=== PATIENT | male | born 1970 | race Caucasian/White ===

== ENCOUNTER 2017-06-14 15:09 | Emergency (ER) | payer MEDICAID, OTHER ==
[~2017-06-14] VITALS: Ht 195.6 cm; Wt 122.5 kg
[~2017-06-14 15:09] MED LIST: BENZ-13 PO; CARV12.52 PO; CARV3.122 PO; CODE-54 PO; CODE118S2 PO; FAMO20TA5 PO; GABA-488; GABA300C PO; GABA600T2 PO; HYDR-3454 PO; HYDR-707 PO; HYDR1TAB PO; IBP800T; IBUP-1780; IBUP-1780 PO; LEVO500T2 PO; MELO7.5T46; METH4TAB PO; NAPR500T PO; OSLT75CRX PO; PENI500T PO; PREG50CA2; RT-ALBUINH IH; SULF-222 PO; TRAM-21 PO; TRAM50TA2 PO
--- OUTSIDE RECORDS SUMMARY | 2017-06-14 15:22 | XMS REPORT ---
Author Author RAFAT PATEL Organization [employer] Address Unknown Phone Unavailable Care Team Providers Care Sandwich Wrapper Name Role Phone RAFAT PATEL CP Unavailable Allergies, Adverse Reactions, Alerts Substance Reaction Event Type N.K.D.A. 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 Active Assessment High risk medication use Z79.899 Active Medications Medication Code System Code Instructions Start Date End Date Status Dosage Coreg [facility] [address]-87 3.125 MG Orally Twice a day 1 tablet with food Ibuprofen [facility] [address]-18 800 MG Orally Three times a day Sep 01, 2015 1 tablet as needed for pain Lyrica [facility] [address]-77 50 MG Orally Three times a day Sep 01, 2015 1 capsule-share to care Iron [facility] [address] 325 (65 Fe) MG Orally 2 times a day 1 tab Tramadol HCl [facility] [address]-14 50 MG Orally 2 times a day Sep 01, 2015 1 tablet as needed Procedures Procedure Coding System Code Date Office Visit, Est Pt., Level 3 CPT-4 58465 Sep 01, 2015 Vital Signs Date/Time: Sep 01, 2015 Temperature 97.0 F Weight 252 lbs Height 77 in BMI 29.88 Index Blood Pressure Diastolic 86 mmHg Blood Pressure Systolic 132 mmHg Cardiac Monitoring Heart Rate 82 bpm Results No Known Results Summary Purpose [employer] Submission
--- OUTSIDE RECORDS SUMMARY | 2017-06-14 15:22 | XMS REPORT ---
Author Author RAFAT PATEL Organization [employer] Address Unknown Phone Unavailable Care Team Providers Care Scow Derrick Operator Name Role Phone RAFAT PATEL CP Unavailable [...] Instructions Start Date End Date Status Dosage Ibuprofen [facility] [address]-14 800 MG Orally Three times a day Sep 01, 2015 1 tablet as needed for pain Coreg [facility] [address]-99 3.125 MG Orally Twice a day 1 tablet with food Gabapentin [facility] [address]-65 600 MG Orally 2 times a day Nov 04, 2015 1 tablet Procedures Procedure Coding System Code Date Office Visit, Est Pt., Level 3 CPT-4 79683 Nov 04, 2015 Vital Signs Date/Time: Nov 04, 2015 Temperature 98.3 F Weight 271.1 lbs Height 77 in BMI 32.14 Index Blood Pressure Diastolic 88 mmHg Blood Pressure Systolic 132 mmHg Cardiac Monitoring Heart Rate 70 bpm Results No Known Results Summary Purpose [employer] Submission
--- OUTSIDE RECORDS SUMMARY | 2017-06-14 15:22 | XMS REPORT ---
Author Author JOLENE TERRY [facility] [employer] Address Unknown Phone Unavailable Care Team Providers Care Fraud Prevention Analyst Name Role Phone JOLENE TERRY Unavailable Allergies No Known Allergies Problems Problem Type Condition ICD-9 Code Onset Dates Condition Status Problem Neuropathy, lower extremity 355.8 Active Problem Chronic pain of lower extremity 729.5 Active Problem Irregular cardiac rhythm 427.9 Active Medications No Known Medications Results No Known Results Summary Purpose [employer] Submission
--- OUTSIDE RECORDS SUMMARY | 2017-06-14 15:22 | XMS REPORT | Clinical Summary ---
Author Author [facility] Organization [facility] Address Unknown Phone Unavailable Care Team Providers Care Mica Washer Gluer Name Role Phone PCP Unavailable Source Comments Some departments are not documenting in the electronic medical record. If you do not see the information that you expected, contact Release of Information in the Health Information Management department at [phone] for further assistance in locating additional records.[facility] Allergies Not on File Current Medications Not on file Active Problems Not on file Social History Tobacco Use Types Packs/Day Years Used Date Never Assessed Sex Assigned at Date Recorded Not on file Last Filed Vital Signs Not on file Plan of Treatment Health Maintenance Due Date Last Done Comments PHYSICAL (COMPREHENSIVE) 1977 EXAM PERTUSSIS VACCINE 1981 TETANUS VACCINE 1987 INFLUENZA VACCINE 06/22/2017 Results Not on filefrom Last 3 Months
--- OUTSIDE RECORDS SUMMARY | 2017-06-14 15:23 | XMS REPORT ---
Author Author RAFAT PATEL Organization [employer] Address Unknown Phone Unavailable Care Team Providers Care Infant Teacher Name Role Phone RAFAT PATEL CP Unavailable Allergies No Known Allergies Problems Problem Type Condition Code Onset Dates Condition Status Problem Neuropathy, lower extremity 355.8 Active Problem Chronic pain of lower extremity 729.5 Active Problem Irregular cardiac rhythm 427.9 Active Medications Medication Code System Code Instructions Start Date End Date Status Dosage Tramadol HCl [facility] [address]-46 50 MG Orally 2 times a day Sep 01, 2015 1 tablet as needed Results No Known Results Summary Purpose [employer] Submission
--- OUTSIDE RECORDS SUMMARY | 2017-06-14 15:23 | XMS REPORT ---
Author Author RAFAT PATEL Organization [employer] Address Unknown Phone Unavailable Care Team Providers Care Confidential Investigator Name Role Phone RAFAT PATEL CP Unavailable Allergies No Known Allergies Problems Problem Type Condition Code Onset Dates Condition Status Problem Neuropathy, lower extremity 355.8 Active Problem Chronic pain of lower extremity 729.5 Active Problem Irregular cardiac rhythm 427.9 Active Medications No Known Medications Results No Known Results Summary Purpose [employer] Submission
[2017-06-14] MEDS: LIDOCAINE 1% INJ 20 ML (XYLOCAINE) VIAL INJ ONE (17:00)
[2017-06-14] MEDS: cefTRIAXone 1 GM (ROCEPHIN) VIAL IM ONE (17:01)
--- NOTE | 2017-06-14 17:03 | ED Integumentary General ---
General Chief Complaint: Skin/Wound Problems Stated Complaint: SPIDER BITE Nursing Triage Note: Pt noticed area of concern on his penis. Onset this morning. Source: patient, family Exam Limitations: no limitations History of Present Illness Time seen by provider: 16:58 Initial Comments This is a 47-year-old white male presents with 2 raised areas to the glans of his penis that he noted this morning. The inferior abrasion just below the glans and the adjacent to the corpora had purulent drainage. Patient denies the possibility of an STD. He is concerned that he may have sustained a spider bite. Patient denies similar episodes in the past. She had no associated fever chills or adenopathy. The patient denies allergies to antibiotics. Allergies and Home Medications Allergies Coded Allergies: LISAANo Known Allergies (Unverified Allergy, Mild, 09/27/09) Home Medications Albuterol Sulfate 8.5 Gm Hfa.aer.ad, 2 PUFF IH Q4H, #1 Prescribed by: BIA ALCAZAR on 06/19/162140 Benzonatate 100 Mg Capsule, 1-2 TAB PO TID, #30 Prescribed by: BIA ALCAZAR on 06/19/162140 Carvedilol 3.125 Mg Tablet, 1 TAB PO BID, #180 (Reported) Gabapentin 600 Mg Tablet, 1 TAB PO BID, #60 (Reported) Ibuprofen 800 Mg Tablet, 800 MG PO UD PRN for PAIN, (Reported) Levofloxacin 500 Mg Tablet, 500 MG PO DAILY, #10 Prescribed by: BIA ALCAZAR on 06/19/162140 Meloxicam 7.5 Mg Tablet, #60 (Reported) Methylprednisolone 4 Mg Tab.ds.pk, 4 MG PO UD, #1 Prescribed by: BIA ALCAZAR on 06/19/162140 Tramadol HCl 50 Mg Tablet, 50 MG PO Q6H PRN for PAIN, #20 Prescribed by: SUNDEEP HASSAN on 05/22/16 0707 Constitutional: No chills, No fever EENTM: No hearing loss Respiratory: No cough Cardiovascular: No chest pain Gastrointestinal: No abdominal pain, No nausea, No vomiting Genitourinary: No discharge, No dysuria, No frequency, No other (. Drainage from the abrasion to the inferior surface of the glans.) Musculoskeletal: No back pain Skin: No change in color, other (the aforementioned abrasions to the glans of the penis) Psychiatric/Neurological: No Symptoms Reported Endocrine: No Symptoms Reported Hematologic/Lymphatic: No Symptoms Reported Past Ocpfaos-Anmbsm-Ypyfqc Hx Patient Social History Alcohol Beverage of Choice: Beer Type Used: Cigars, Cigarettes Recent Foreign Travel: No Contact w/Someone Who Travel: No Recent Infectious Disease Expo: No Recent Hopitalizations: No Immunizations Up To Date Tetanus Booster (TDap): Unknown Date of Influenza Vaccine: Sep 09, 2014 Seasonal Allergies Seasonal Allergies: No Surgeries Surgeries: Orthopedic Cardiovascular Cardiac Disorders: Hypertension, Irregular Heartbeat Reproductive System Hx Reproductive Disorders: No Musculoskeletal Musculoskeletal Disorders: Chronic Back Pain, Fractures Blood Transfusions Adverse Reaction to a Blood Tr: No Reviewed Nursing Assessment Reviewed/Agree w Nursing PMH: Yes Physical Exam Vital Signs Vital Sign - Last 12Hours 06/14/17 15:52 Temp 97.2 Pulse 70 Resp 16 B/P (MAP) 135/84 Pulse Ox 98 O2 Delivery Room Air Capillary Refill : Less Than 3 Seconds General Appearance: WD/WN, no apparent distress HEENT: normal ENT inspection Neck: normal inspection Cardiovascular: regular rate, rhythm Respiratory: chest non-tender, lungs clear Gastrointestinal: normal bowel sounds, non tender Back: normal inspection Extremities: normal range of motion Neurologic/Psychiatric: no motor/sensory deficits Skin: normal color, warm/dry, other (abrasions are noted over the glans of the penis. There is a small nondraining abrasion over the dorsum of the glans there is a small amount of purulent drainage from the abrasion to the inferior surface of the glans.) Skin Problem Location: generalized Skin Problem Character: abscess Progress/Results/Core Measures Results/Orders My Orders Orders - SAULO COKER MD Ceftriaxone Injection (Rocephin Injectio (06/14/17 16:15) Lidocaine 1% Injection (Xylocaine 1% Inj (06/14/17 16:15) Wound Culture (06/14/17 16:27) Vital Signs/I&O Vital Sign - Last 12Hours 06/14/17 15:52 Temp 97.2 Pulse 70 Resp 16 B/P (MAP) 135/84 Pulse Ox 98 O2 Delivery Room Air Blood Pressure Mean: 101 Progress Note : Time: 17:02 Progress Note The patient had a culture obtained from the abrasion to the inferior surface of the glans. He received a gram of Rocephin IM. Departure Impression Impression: Primary Impression: Skin abrasion Disposition: HOME, SELF-CARE Condition: Improved Departure-Patient Inst. Decision time for Depature: 17:03 Referrals: NO,LOCAL PHYSICIAN (PCP) Primary Care Physician Patient Instructions: Cellulitis (Skin Infection), Adult (DC) SAULO COKER MD Jun 14, 2017 17:03
[2017-06-14 17:20] VITALS: BP 132/88
== END 2017-06-14 17:20 | disposition home or self-care (01) ==
LOC: EDUNIT# 15:09 → ER 15:11
DX: S30.812A Abrasion of penis, initial encounter (principal); I10 Essential (primary) hypertension; Z87.81 Personal history of (healed) traumatic fracture; X58.XXXA Exposure to other specified factors, initial encounter
CPT/HCPCS: 87070; 87205; 96372; 99284

== ENCOUNTER 2017-08-18 15:31 | Emergency (ER) | payer MEDICARE, OTHER ==
[~2017-08-18] VITALS: Ht 195.6 cm; Wt 122.5 kg
--- OUTSIDE RECORDS SUMMARY | 2017-08-18 15:35 | XMS REPORT | Clinical Summary ---
Author Author [facility] Organization [facility] Address Unknown Phone Unavailable Care Team Providers Care Supervisor Lace Tearing Name Role Phone PCP Unavailable Source Comments Some departments are not documenting in the electronic medical record. If you do not see the information that you expected, contact Release of Information in the Health Information Management department at [phone] for further assistance in locating additional records.[facility] Allergies Not on File Current Medications Not on file Active Problems Not on file Social History Tobacco Use Types Packs/Day Years Used Date Never Assessed Sex Assigned at Date Recorded Not on file Last Filed Vital Signs Not on file Plan of Treatment Health Maintenance Due Date Last Done Comments PHYSICAL (COMPREHENSIVE) 1977 EXAM PERTUSSIS VACCINE 1981 TETANUS VACCINE 1987 INFLUENZA VACCINE 05/22/2017 Results Not on filefrom Last 3 Months
[2017-08-18] MEDS ORDERED: ORPHENADRINE 60 MG/2 ML (NORFLEX) AMP IM ONE (15:45)
--- NOTE | 2017-08-18 15:48 | ED Neck-Back Pain/Injury ---
General Chief Complaint: Head/Cervical Problems Stated Complaint: NECK/SPINE PAIN Source of Information: Patient Exam Limitations: No Limitations History of Present Illness Time Seen by Provider: 15:45 Initial Comments To ER with 2-3 days of posterior midline neck pain. This does not affect his head he has no headache. He denies fevers or chills or injury. He states he's been unable sleep for the past 2-3 days because of the pain. He states that he can keep his head bent forward without pain but when he tries to extend his neck then he gets a shooting pain down both of his arms into his biceps. He's recently had a sore throat after his had a upper respiratory illness. Symptoms are improving and he is able to swallow without pain or difficulty. No fevers.He has had these symptoms before but not this intense and they went away without treatment. Location: C-Spine, Paraspinous Muscles Timing/Duration: 2-3 Days Severity: Moderate Associated Symptoms: No fever, No numbness in legs/feet, No tingling in legs/ feet, No sensory/motor loss, No lower back pain, No loss of bladder control, No loss of bowel control Allergies and Home Medications Allergies Coded Allergies: NKANo Known Allergies (Unverified Allergy, Mild, 09/27/09) Home Medications Albuterol Sulfate 8.5 Gm Hfa.aer.ad, 2 PUFF IH Q4H, #1 Prescribed by: BIA ALCAZAR on 06/19/162140 Benzonatate 100 Mg Capsule, 1-2 TAB PO TID, #30 Prescribed by: BIA ALCAZAR on 06/19/162140 Carvedilol 3.125 Mg Tablet, 1 TAB PO BID, #180 (Reported) Gabapentin 600 Mg Tablet, 1 TAB PO BID, #60 (Reported) Ibuprofen 800 Mg Tablet, 800 MG PO UD PRN for PAIN, (Reported) Levofloxacin 500 Mg Tablet, 500 MG PO DAILY, #10 Prescribed by: BIA ALCAZAR on 06/19/162140 Meloxicam 7.5 Mg Tablet, #60 (Reported) Methylprednisolone 4 Mg Tab.ds.pk, 4 MG PO UD, #1 Prescribed by: BIA ALCAZAR on 06/19/162140 Tramadol HCl 50 Mg Tablet, 50 MG PO Q6H PRN for PAIN, #20 Prescribed by: SUNDEEP HASSAN on 05/22/16 0707 Constitutional: see HPI, No chills, No fever EENTM: see HPI Respiratory: no symptoms reported Cardiovascular: no symptoms reported Genitourinary: no symptoms reported Musculoskeletal: see HPI Skin: no symptoms reported Psychiatric/Neurological: No Symptoms Reported Past Pjbthds-Aumwkn-Ebzdym Hx Patient Social History Alcohol Use: Occasionally Uses Number of Drinks Today: AA Alcohol Beverage of Choice: Beer Recreational Drug Use: No Smoking Status: Current Someday Smoker Type Used: Cigars, Cigarettes 2nd Hand Smoke Exposure: Yes Recent Foreign Travel: No Contact w/Someone Who Travel: No Recent Hopitalizations: No Physical Abuse: No Sexual Abuse: No Immunizations Up To Date Tetanus Booster (TDap): Unknown Date of Influenza Vaccine: Sep 09, 2014 Seasonal Allergies Seasonal Allergies: No Surgeries History of Surgeries: Yes (LEFT LOWER LEG SURGERY X 4) Surgeries: Orthopedic Respiratory History of Respiratory Disorde: No Cardiovascular History of Cardiac Disorders: Yes Cardiac Disorders: Hypertension, Irregular Heartbeat Neurological History of Neurological Disord: No Reproductive System Hx Reproductive Disorders: No Gastrointestinal History of Gastrointestinal Di: No Musculoskeletal History of Musculoskeletal Dis: Yes (LEFT LOWER LEG INJURY) Musculoskeletal Disorders: Chronic Back Pain, Fractures Endocrine History of Endocrine Disorders: No Cancer History of Cancer: No Psychosocial History of Psychiatric Problem: No Suicide Risk Score: 0 Integumentary History of Skin or Integumenta: No Blood Transfusions History of Blood Disorders: No Adverse Reaction to a Blood Tr: No Physical Exam Vital Signs Vital Sign - Last 12Hours 08/18/17 15:41 Temp 98.1 Pulse 73 Resp 16 B/P (MAP) 155/99 Pulse Ox 98 O2 Delivery Room Air Capillary Refill : General Appearance: No Apparent Distress, WD/WN HEENT: PERRL/EOMI, TMs Normal, Other (there is some pharyngeal erythema that is minor without ulceration or swelling. There is no uvular deviation. He does not have a hot potato voice. He has no pain with neck kept in a flexed position but when he tries to extend the neck then he gets the pain. The pain is midline posterior.) Neck: Full Range of Motion, Normal Inspection Cardiovascular: Regular Rate, Rhythm, Normal Peripheral Pulses Respiratory: Lungs Clear, Normal Breath Sounds, No Accessory Muscle Use, No Respiratory Distress Gastrointestinal: Non Tender, Soft Extremity: Normal Capillary Refill, Normal Inspection Neurologic/Psychiatric: Alert, Oriented x3, No Motor/Sensory Deficits Skin: Normal Color, Warm/Dry Progress/Results/Core Measures Results/Orders My Orders Orders - BRODY MENDOZA APRN Ct Cervical Spine Wo (08/18/17 15:44) Orphenadrine Injection (Norflex Injectio (08/18/17 15:45) Medications Given in ED Current Medications Medications Dose Ordered Sig/Marguerite Route Start Time Stop Time Status Last Admin Dose Admin Orphenadrine Citrate 60 mg ONCE ONCE IM 08/18/17 15:45 08/18/17 15:46 DC 08/18/17 16:02 60 MG Vital Signs/I&O Vital Sign - Last 12Hours 08/18/17 15:41 Temp 98.1 Pulse 73 Resp 16 B/P (MAP) 155/99 Pulse Ox 98 O2 Delivery Room Air Diagnostic Imaging Diagonstic Imaging: CT Comments NAME: WALE ANTUNEZ [facility] REC#: [id number] PT STATUS: REG ER : 1970 PHYSICIAN: BRODY MENDOZA APRN ADMIT DATE: 08/18/17/ER Draft Date of Exam:08/18/17 CT CERVICAL SPINE WO PROCEDURE: CT cervical spine without contrast. TECHNIQUE: Multiple contiguous axial images were obtained through the cervical spine without the use of intravenous contrast. Sagittal and coronal reformations were then performed. INDICATION: Neck pain radiating down the spine. FINDINGS: There is normal height and alignment of the cervical vertebral bodies. There is mild disc space narrowing at C4-5 with no significant spondylosis. There is disc space narrowing and spondylosis at C5-6 which is causing some mild central canal, as well as some bilateral foraminal, narrowing. There are mild degenerative changes at C6-7. No fracture or other acute abnormality is seen. IMPRESSION: There are degenerative changes in the cervical spine which have shown some progression since the prior CT from 12/27/08. No acute abnormality is seen. Dictated on workstation # [id number] Dict: 08/18/17 1605 Trans: 08/18/17 1611 [facility] [id number] Interpreted by: CATIA COTTON MD Electronically signed by: Departure Impression Impression: Primary Impression: Cervical spine pain Disposition: 01 HOME, SELF-CARE Condition: Stable Departure-Patient Inst. Decision time for Depature: 15:48 Referrals: NO,LOCAL PHYSICIAN (PCP/Family) Primary Care Physician Patient Instructions: NO INSTRUCTIONS GIVEN Add. Discharge Instructions: 1. Return to ER for any concerns 2. Steroids and muscle relaxers as directed 3. Follow up with your doctor next week All discharge instructions reviewed with patient and/or family. Voiced understanding. Scripts Prednisone (Prednisone) 20 Mg Tab 40 MG PO DAILY, #8 TAB Prov: BRODY MENDOZA APRN 08/18/17 Cyclobenzaprine HCl (Cyclobenzaprine HCl) 5 Mg Tablet 5 MG PO TID, #21 TAB Prov: BRODY MENDOZA APRN 08/18/17 BRODY MENDOZA APRN Aug 18, 2017 15:48
--- NOTE | 2017-08-18 16:12 | Diagnostic Imaging Report ---
PROCEDURE: CT cervical spine without contrast. TECHNIQUE: Multiple contiguous axial images were obtained through the cervical spine without the use of intravenous contrast. Sagittal and coronal reformations were then performed. INDICATION: Neck pain radiating down the spine. FINDINGS: There is normal height and alignment of the cervical vertebral bodies. There is mild disc space narrowing at C4-5 with no significant spondylosis. There is disc space narrowing and spondylosis at C5-6 which is causing some mild central canal, as well as some bilateral foraminal, narrowing. There are mild degenerative changes at C6-7. No fracture or other acute abnormality is seen. IMPRESSION: There are degenerative changes in the cervical spine which have shown some progression since the prior CT from 12/27/08. No acute abnormality is seen. Dictated by: Dictated on workstation # [id number]
[2017-08-18] MEDS ORDERED: CYCL5TAB PO (16:15)
[2017-08-18] MEDS ORDERED: PRD20T PO (16:15)
[2017-08-18 16:25] VITALS: BP 155/99
[2017-08-18] MEDS ORDERED: morphine INJ 10 MG/ML 1ML (SYR OR VIAL) IJ ONE (16:30)
== END 2017-08-18 16:25 | disposition home or self-care (01) ==
LOC: ER 15:31
DX: M54.2 Cervicalgia (principal); I10 Essential (primary) hypertension; F17.210 Nicotine dependence, cigarettes, uncomplicated; F17.290 Nicotine dependence, other tobacco product, uncomplicated; Z87.81 Personal history of (healed) traumatic fracture
CPT/HCPCS: 72125; 99284

== ENCOUNTER 2018-01-30 14:15 | Inpatient (IN) | payer MEDICARE ==
[~2018-01-30] VITALS: Ht 195.6 cm; Wt 113.2 kg
[~2018-01-30 14:15] MED LIST changes: +CYCL5TAB PO; +NAPR-1071 PO; -NAPR500T PO; +PRD20T PO
--- NOTE | 2018-01-30 14:23 | ED Chest Pain ---
General Stated Complaint: CP,SOB Source: patient Exam Limitations: no limitations History of Present Illness Date Seen by Provider: Jan 30, 2018 Time Seen by Provider: 14:22 Initial Comments to ER with left-sided chest pain worse with deep breathing that began yesterday. He's had a cough and wheezing as well. Believes this may be a chest cold. Timing/Duration: 24 hours Severity/Quality: moderate ASA po TURNAROUND ENGINEER: No NTG SL TURNAROUND ENGINEER: No Associated Symptoms: shortness of breath Allergies and Home Medications Allergies Coded Allergies: NKANo Known Allergies (Unverified Allergy, Mild, 09/27/09) Home Medications Albuterol Sulfate 8.5 Gm Hfa.aer.ad, 2 PUFF IH Q4H Prescribed by: BIA ALCAZAR on 06/19/162140 Benzonatate 100 Mg Capsule, 1-2 TAB PO TID Prescribed by: BIA ALCAZAR on 06/19/162140 Carvedilol 3.125 Mg Tablet, 1 TAB PO BID, (Reported) Cyclobenzaprine HCl 5 Mg Tablet, 5 MG PO TID Prescribed by: BRODY MENDOZA on 08/18/171614 Gabapentin 600 Mg Tablet, 1 TAB PO BID, (Reported) Ibuprofen 800 Mg Tablet, 800 MG PO UD PRN for PAIN, (Reported) Levofloxacin 500 Mg Tablet, 500 MG PO DAILY Prescribed by: BIA ALCAZAR on 06/19/162140 Methylprednisolone 4 Mg Tab.ds.pk, 4 MG PO UD Prescribed by: BIA ALCAZAR on 06/19/162140 Prednisone 20 Mg Tab, 40 MG PO DAILY Prescribed by: BRODY MENDOZA on 08/18/171614 Tramadol HCl 50 Mg Tablet, 50 MG PO Q6H PRN for PAIN Prescribed by: SUNDEEP HASSAN on 05/22/16 0707 Patient Home Medication List Home Medication List Reviewed: Yes Review of Systems Constitutional: see HPI EENTM: No Symptoms Reported Respiratory: See HPI, Cough, Shortness of Air, Wheezing Cardiovascular: See HPI, Chest Pain Gastrointestinal: No Symptoms Reported Genitourinary: No Symptoms Reported Musculoskeletal: no symptoms reported Skin: no symptoms reported Psychiatric/Neurological: No Symptoms Reported Past Itcgjng-Hcfxqv-Olvovq Hx Patient Social History Alcohol Beverage of Choice: Beer Type Used: Cigars, Cigarettes 2nd Hand Smoke Exposure: Yes Recent Foreign Travel: No Contact w/Someone Who Travel: No Recent Hopitalizations: No Immunizations Up To Date Tetanus Booster (TDap): Unknown Date of Influenza Vaccine: Sep 09, 2014 Seasonal Allergies Seasonal Allergies: No Past Medical History Surgeries: Yes (LEFT LOWER LEG SURGERY X 4) Orthopedic Respiratory: No Cardiac: Yes Hypertension, Irregular Heartbeat Neurological: No Reproductive Disorders: No Gastrointestinal: No Musculoskeletal: Yes (LEFT LOWER LEG INJURY) Chronic Back Pain, Fractures Endocrine: No Cancer: No Psychosocial: No Integumentary: No Blood Disorders: No Adverse Reaction/Blood Tranf: No Physical Exam Vital Signs Vital Signs - First Documented 01/30/18 14:28 Temp 97.6 Pulse 77 Resp 18 B/P (MAP) 133/78 (96) Pulse Ox 95 O2 Delivery Room Air Capillary Refill : General Appearance: No Apparent Distress, WD/WN HEENT: PERRL/EOMI, TMs Normal Respiratory: No Accessory Muscle Use, No Respiratory Distress, Wheezing Cardiovascular: Regular Rate, Rhythm, Normal Peripheral Pulses Gastrointestinal: Non Tender, Soft Extremity: Normal Capillary Refill, Normal Inspection Neurologic/Psychiatric: Alert, Oriented x3 Skin: Normal Color, Warm/Dry Progress/Results/Core Measures Lab Results Laboratory Tests Test 01/30/18 14:33 01/30/18 14:56 01/30/18 15:10 Range/Units White Blood Count 7.0 4.3-11.0 10^3/uL Red Blood Count 4.83 4.35-5.85 10^6/uL Hemoglobin 15.6 13.3-17.7 G/DL Hematocrit 45 40-54 % Mean Corpuscular Volume 94 80-99 FL Mean Corpuscular Hemoglobin 32 25-34 PG Mean Corpuscular Hemoglobin Concent 34 32-36 G/DL Red Cell Distribution Width 13.3 10.0-14.5 % Platelet Count 183 130-400 10^3/uL Mean Platelet Volume 10.1 7.4-10.4 FL Neutrophils (%) (Auto) 52 42-75 % Lymphocytes (%) (Auto) 38 12-44 % Monocytes (%) (Auto) 6 0-12 % Eosinophils (%) (Auto) 3 0-10 % Basophils (%) (Auto) 0 0-10 % Neutrophils # (Auto) 3.7 1.8-7.8 X 10^3 Lymphocytes # (Auto) 2.6 1.0-4.0 X 10^3 Monocytes # (Auto) 0.5 0.0-1.0 X 10^3 Eosinophils # (Auto) 0.2 0.0-0.3 10^3/uL Basophils # (Auto) 0.0 0.0-0.1 10^3/uL Prothrombin Time 12.8 12.2-14.7 SEC INR Comment 1.0 0.8-1.4 Activated Partial Thromboplast Time 30 24-35 SEC D-Dimer 0.94 H 0.00-0.49 UG/ML Sodium Level 140 135-145 MMOL/L Potassium Level 4.2 3.6-5.0 MMOL/L Chloride Level 104 98-107 MMOL/L Carbon Dioxide Level 24 21-32 MMOL/L Anion Gap 12 5-14 MMOL/L Blood Urea Nitrogen 13 7-18 MG/DL Creatinine 0.95 0.60-1.30 MG/DL Estimat Glomerular Filtration Rate > 60 BUN/Creatinine Ratio 14 Glucose Level 175 H 70-105 MG/DL Calcium Level 9.1 8.5-10.1 MG/DL Magnesium Level 2.2 1.8-2.4 MG/DL Total Bilirubin 0.4 0.1-1.0 MG/DL Aspartate Amino Transf (AST/SGOT) 29 5-34 U/L Alanine Aminotransferase (ALT/SGPT) 41 0-55 U/L Alkaline Phosphatase 94 40-136 U/L Myoglobin 52.9 10.0-92.0 NG/ML Troponin I < 0.30 <0.30 NG/ML B-Type Natriuretic Peptide 236.7 H <100.0 PG/ML Total Protein 6.8 6.4-8.2 GM/DL Albumin 4.1 3.2-4.5 GM/DL Group A Streptococcus Screen NEGATIVE NEGATIVE Urine Opiates Screen NEGATIVE NEGATIVE Urine Oxycodone Screen POSITIVE H NEGATIVE Urine Methadone Screen NEGATIVE NEGATIVE Urine Propoxyphene Screen NEGATIVE NEGATIVE Urine Barbiturates Screen NEGATIVE NEGATIVE Ur Tricyclic Antidepressants Screen NEGATIVE NEGATIVE Urine Phencyclidine Screen NEGATIVE NEGATIVE Urine Amphetamines Screen NEGATIVE NEGATIVE Urine Methamphetamines Screen POSITIVE H NEGATIVE Urine Benzodiazepines Screen POSITIVE H NEGATIVE Urine Cocaine Screen NEGATIVE NEGATIVE Urine Cannabinoids Screen NEGATIVE NEGATIVE Micro Results Microbiology 01/30/18 Influenza Types A,B Antigen (CLEMENCIA) - Final, Complete My Orders Orders - BRODY MENDOZA FLOW MATCH SOFA CUTTER Cbc With Automated Diff (01/30/18 14:19) Magnesium (01/30/18 14:19) Chest 1 View, Ap/Pa Only (01/30/18 14:19) Ekg Tracing (01/30/18 14:19) Cardiac Profile 1 (01/30/18 14:19) Comprehensive Metabolic Panel (01/30/18 14:19) Myoglobin Serum (01/30/18 14:19) Protime With Inr (01/30/18 14:19) Partial Thromboplastin Time (01/30/18 14:19) O2 (01/30/18 14:19) Monitor-Rhythm Ecg Trace Only (01/30/18 14:19) Lipid Panel (01/31/18 06:00) Aspirin Chewable Tablet (Baby Aspirin Ch (01/30/18 14:30) Saline Lock/Iv-Start (01/30/18 14:19) BNP (01/30/18 14:19) Fibrin Degradation Products (01/30/18 14:19) Drug Screen Stat (Urine) (01/30/18 14:19) Albuterol/Ipra Inhalation Soln (Duoneb I (01/30/18 14:30) Ketorolac Injection (Toradol Injection) (01/30/18 14:30) Svn Sm Volume Nebulizer Rt-Rfs (01/30/18 14:21) Methylprednisolone Sod Succ (Solu-Medrol (01/30/18 14:30) Rapid Strep A Screen (01/30/18 14:38) Influenza A And B Antigens (01/30/18 14:38) Ct Angio Chest W (01/30/18 15:00) Iohexol Injection (Omnipaque 350 Mg/Ml 1 (01/30/18 15:15) Ns (Ivpb) (Sodium Chloride 0.9%) (01/30/18 15:15) Medications Given in ED Current Medications Medications Dose Ordered Sig/Marguerite Route Start Time Stop Time Status Last Admin Dose Admin Albuterol/ Ipratropium 3 ml ONCE ONCE INH 01/30/18 14:30 01/30/18 14:31 DC 01/30/18 14:51 3 ML Iohexol 125 ml ONCE ONCE IV 01/30/18 15:15 01/30/18 15:16 DC 01/30/18 15:20 125 ML Ketorolac Tromethamine 30 mg ONCE ONCE IVP 01/30/18 14:30 01/30/18 14:31 DC 01/30/18 14:44 30 MG Methylprednisolone Sodium Succinate 125 mg ONCE ONCE IVP 01/30/18 14:30 01/30/18 14:31 DC 01/30/18 14:46 125 MG Sodium Chloride 250 ml ONCE ONCE IV 01/30/18 15:15 01/30/18 15:16 DC 01/30/18 15:20 80 ML Vital Signs/I&O 01/30/18 01/30/18 01/30/18 14:28 14:32 14:52 Temp 97.6 Pulse 77 Resp 18 B/P (MAP) 133/78 (96) Pulse Ox 95 93 O2 Delivery Room Air Room Air Room Air Diagonstic Imaging: Xray Comments NAME: WALE ANTUNEZ [facility] REC#: [id number] PT STATUS: REG ER : 1970 PHYSICIAN: BRODY MENDOZA APRN ADMIT DATE: 01/30/18/ER Signed Date of Exam:01/30/18 CHEST 1 VIEW, AP/PA ONLY CHEST 1 VIEW, AP/PA ONLY Indication: Chest pain Comparison: 06/19/2016. Findings: No focal airspace disease in the visualized lungs. Please note that the posterior lower lobes are poorly evaluated by portable radiography. No pleural effusion or pneumothorax. Normal cardiomediastinal silhouette. Impression: No acute cardiopulmonary process by portable radiography. Dictated by: Dictated on workstation # [id number] Dict: 01/30/18 1449 Trans: 01/30/18 1449 [facility] [id number] Interpreted by: YONI CLIFFORD MD Electronically signed by: YONI CLIFFORD MD 01/30/18 1449 Departure Communication (Admissions) Time/Spoke to Admitting Phy: 16:18 Dr Ryan agrees to admit. Time/Spoke to Consulting Phy: 16:17 Dr Anaya recommends admission to PCP with consult to him. 1618-Pt is in trigenimy/bigeminy. I did discuss the urinalysis positive for methamphetamine with the patient. He denies this adamantly states that this must be a lab error. He would like to provide another urine sample. He goes to the bathroom for about 5 minutes and states that he cannot provide one now but would like to provide one later to recheck. Impression Primary Impression: Chest pain Additional Impression: Reactive airway disease Disposition: HOME, SELF-CARE Condition: Stable Admissions Decision to Admit Reason: Admit from ER (General) Decision to Admit/Date: Jan 30, 2018 Time/Decision to Admit Time: 16:19 Departure-Patient Inst. Referrals: BRADLY RYAN MD (PCP/Family) Primary Care Physician Copy Copies To 1: BRADLY RYAN MD, PETER J FLOW MATCH SOFA CUTTER Jan 30, 2018 14:23
[2018-01-30] MEDS ORDERED: KETOROLAC 30 MG/ML VIAL IVP ONE (14:30)
[2018-01-30] MEDS ORDERED: ASPIRIN 81 MG CHEW (CHILDREN'S ASA) PO ONE (14:30)
[2018-01-30] MEDS ORDERED: methylPREDNISolone 125 MG (Solu-MEDROL) VIAL IVP ONE (14:30)
[2018-01-30] MEDS ORDERED: RT-ALBUTEROL/IPRATROPIUM 3 ML (DUONEB) VIAL INH ONE (14:30)
[2018-01-30 14:42] LABS: BASOPHILS % (AUTO) 0 % (0-10); EOSINOPHILS # (AUTO) 0.2 10^3/uL (0.0-0.3); EOSINOPHILS % (AUTO) 3 % (0-10); HEMATOCRIT 45 % (40-54); HEMOGLOBIN 15.6 G/DL (13.3-17.7); LYMPHOCYTES # (AUTO) 2.6 X 10^3 (1.0-4.0); LYMPHOCYTES % (AUTO) 38 % (12-44); MEAN CORPUSCULAR HEMOGLOBIN 32 PG (25-34); MEAN CORPUSCULAR HGB CONC 34 G/DL (32-36); MEAN CORPUSCULAR VOLUME 94 FL (80-99); MEAN PLATELET VOLUME 10.1 FL (7.4-10.4); MONOCYTES # (AUTO) 0.5 X 10^3 (0.0-1.0); MONOCYTES % (AUTO) 6 % (0-12); NEUTROPHILS # (AUTO) 3.7 X 10^3 (1.8-7.8); NEUTROPHILS % (AUTO) 52 % (42-75); PLATELET COUNT 183 10^3/uL (130-400); RED BLOOD COUNT 4.83 10^6/uL (4.35-5.85); RED CELL DISTRIBUTION WIDTH 13.3 % (10.0-14.5)
--- NOTE | 2018-01-30 14:52 | Diagnostic Imaging Report ---
CHEST 1 VIEW, AP/PA ONLY Indication: Chest pain Comparison: 06/19/2016. Findings: No focal airspace disease in the visualized lungs. Please note that the posterior lower lobes are poorly evaluated by portable radiography. No pleural effusion or pneumothorax. Normal cardiomediastinal silhouette. Impression: No acute cardiopulmonary process by portable radiography. Dictated by: Dictated on workstation # [id number]
[2018-01-30 14:53] LABS: PROTHROMBIN TIME PATIENT 12.8 SEC (12.2-14.7)
[2018-01-30 15:03] LABS: ALANINE AMINOTRANSFERASE 41 U/L (0-55); ALBUMIN 4.1 GM/DL (3.2-4.5); ALKALINE PHOSPHATASE 94 U/L (40-136); BILIRUBIN,TOTAL 0.4 MG/DL (0.1-1.0); BUN/CREATININE RATIO 14; CALCIUM 9.1 MG/DL (8.5-10.1); CARBON DIOXIDE 24 MMOL/L (21-32); CHLORIDE 104 MMOL/L (98-107); CREATININE SERUM 0.95 MG/DL (0.60-1.30); GFR ESTIMATED > 60; GLUCOSE 175 MG/DL (70-105); MAGNESIUM 2.2 MG/DL (1.8-2.4); POTASSIUM 4.2 MMOL/L (3.6-5.0); SODIUM 140 MMOL/L (135-145); TOTAL PROTEIN 6.8 GM/DL (6.4-8.2)
[2018-01-30 15:12] LABS: MYOGLOBIN SERUM 52.9 NG/ML (10.0-92.0)
[2018-01-30] MEDS ORDERED: IOHEXOL 350 MG/ML 150 ML (OMNIPAQUE 350) VIAL IV ONE (15:15)
[2018-01-30] MEDS ORDERED: NS 250 ML (IVPB) BAG IV ONE (15:15)
[2018-01-30 15:33] LABS: BENZODIAZEPINES SCREEN URINE POSITIVE (NEGATIVE); METHAMPHETAMINE SCREEN URINE S POSITIVE (NEGATIVE)
[2018-01-30 15:34] LABS: AMPHETAMINE SCREEN, URINE NEGATIVE (NEGATIVE); BARBITURATE SCREEN URINE NEGATIVE (NEGATIVE); CANNABINOID SCREEN, URINE NEGATIVE (NEGATIVE); COCAINE SCREEN URINE NEGATIVE (NEGATIVE); METHADONE STAT NEGATIVE (NEGATIVE); OPIATE SCREEN URINE NEGATIVE (NEGATIVE); OXYCODONE STAT POSITIVE (NEGATIVE); PROPOXYPHENE STAT NEGATIVE (NEGATIVE); TRICYCLIC ANTIDEPRESSANTS SCRE NEGATIVE (NEGATIVE)
--- NOTE | 2018-01-30 15:58 | Diagnostic Imaging Report ---
PROCEDURE: CT angiography of the chest with contrast. TECHNIQUE: Multiple contiguous axial images were obtained through the chest after uneventful bolus administration of intravenous contrast. Reconstructed CTA MIP acquisitions were also performed. INDICATION: Chest pain. Shortness of air. Cough. COMPARISON: None. FINDINGS: There is no evidence of acute pulmonary embolus to the first subsegmental division of the pulmonary arteries. Heart size is within normal limits. There is no large pericardial effusion. Multiple slightly prominent mediastinal and bilateral hilar lymph nodes are identified. Largest right hilar lymph node measures 1.6 x 1.4 cm (image 60, series 2). Largest left hilar lymph node measures 1.7 x 1.3 cm. Largest mediastinal lymph node measures 1.5 x 1.2 cm. Evaluation of the lung murray demonstrates no focal consolidation, pleural effusion, nor pneumothorax. There is a subtle nodular area of groundglass density within the left suprahilar region that measures approximately 1.7 cm in diameter. Otherwise, no suspicious pulmonary nodules or masses are identified. Bony structures show no acute abnormalities. No lytic or blastic bony lesions are identified. Included portions of the upper abdomen show a hypodense appearance to the hepatic parenchyma. IMPRESSION: 1. No CT evidence of acute pulmonary embolus to the first subsegmental division of the pulmonary arteries. 2. Mildly prominent bilateral hilar and mediastinal adenopathy. Etiology and clinical significance is indeterminate based on this exam alone. Both lymphoproliferative and lympho- invasive processes such as sarcoid or metastatic disease should be considered. 3. Ill-defined subtle groundglass density within the left superhilar region. Please see below for followup recommendations. 4. Hepatic steatosis. PULMONARY NODULE FOLLOW-UP Subsolid Nodules: <6 mm: * Ground glass - no routine follow up. (In certain suspicious nodules <6 mm, consider follow-up at 2 and 4 years. If solid component(s) or growth develops, consider resection.) * Part solid - no routine follow up. (In practice, part-solid nodules cannot be defined as such until 6mm or greater, and nodules <6 mm do not usually require follow-up. Persistent part-solid nodules with solid components 6mm or greater should be considered highly suspicious) * Multiple - Consider at 3-6 months. If stable, consider CT at 2 and 4 years. (Multiple <6mm pure ground-glass nodules are usually benign, but consider follow-up in selected patients at high risk at 2 and 4 years.) 6 mm or greater: * Ground glass - CT at 6-12 months to confirm persistence, then CT every 2 years until 5 years * Part solid - CT at 3-6 months to confirm persistence. If unchanged and solid component remains <6 mm, annual CT should be performed for 5 years * Multiple - CT at 3-6 months. Subsequent management based on the most suspicious nodule(s). Dictated by: Dictated on workstation # [id number]
--- NOTE | 2018-01-30 16:52 | Consultation-Cardiology ---
HPI-Cardiology Cardiology Consultation: Date of Consultation 01/30/18 Time Seen by Provider: 16:10 Date of Admission 01-30-18 Attending Physician Suni Ryan MD Admitting Physician Suni Ryan MD Consulting Physician Chester Anaya MD HPI: Chief Complaint: PVC' Chest pain Mr. Juarez is a 47 year old male being admitted from the ED. He reports he has had increasing SOB over the course of the last year, but feels over the last few weeks it has been significantly worse. He reports chronic morning cough of thick, dark sputum. He reports yesterday he began to have sharp mid-sternal chest pain which radiated to the left side. He reports it was constant. No aggravating or alleviating symptoms. He reports around 11:00 this morning he feels the pain resolved gradually. He describes the SOB as a feeling that he can't get any air in. He reports he feels he is gasping for air at times. He reports waking up from sleep gasping at night. He reports episodes of a skipped heartbeat, which is more so at night. He states he has a home monitor and it reports his HR varies from the 40's to the 90's. He denies any syncope or near syncope. No c/o n/v/d. No c/o fever or chills. Review of Systems-Cardiology Review of Systems Constitutional: No chills, No fever Eyes: No blurred vision, No vision change Ears/Nose/Throat: No epistaxis Respiratory: As described under HPI Cardiovascular: As described under HPI Gastrointestinal: No constipation, No diarrhea, No nausea, No vomiting Genitourinary: No dysuria, No hematuria Musculoskeletal: other (chronic left leg and knee pain) Skin: No rash, No ulcerations Psychiatric/Neurological: anxiety, depression; No focal weakness, No syncope Hematologic: No bleeding abnormalities NCR-Klohna-Psggoh Hx Patient Social History Alcohol Use: Denies Use Recreational Drug Use: No Type Used: Cigars, Cigarettes 2nd Hand Smoke Exposure: Yes Recent Foreign Travel: No Recent Infectious Disease Expo: No Immunizations Up To Date Tetanus Booster (TDap): Unknown Date of Influenza Vaccine: Sep 09, 2014 Past Medical History PMH As described under Assessment. Family Medical History Family Medical History: He report his father has CAD which was first diagnosed in his late 60's. Allergies and Home Medications Allergies Coded Allergies: Sanna Known Allergies (Unverified Allergy, Mild, 09/27/09) Home Medications Carvedilol 3.125 Mg Tablet, 1 TAB PO BID, (Reported) Diazepam 5 Mg Tablet, 5 MG PO BID PRN for ANXIETY/LEG SPASMS, (Reported) Gabapentin 600 Mg Tablet, 1 TAB PO BID, (Reported) Oxycodone HCl/Acetaminophen 1 Each Tablet, 1 TAB PO TID PRN for PAIN-MODERATE, ( Reported) [Stephanie] , PO UD, (Reported) Physical Exam-Cardiology Physical Exam Vital Signs/I&O 01/31/18 01/31/18 01/31/18 01/31/18 00:00 01:00 04:00 09:06 Temp 99.4 97.7 Pulse 80 77 52 Resp 20 18 B/P (MAP) 140/80 (100) 148/70 (96) Pulse Ox 90 92 96 O2 Delivery Room Air Room Air Room Air 01/31/18 00:00 Intake Total 350 ml Balance 350 ml Capillary Refill : Less Than 3 Seconds Constitutional: AAO x 3, well-developed, well-nourished HEENT: PERRL, hearing is well preserved, oral hygience is good Neck: No carotid bruit; carotid pulses are 2 + bilaterally Respiratory: No accessory muscle use, No respiratory distress; chest expansion is symmetric, chest is bilaterally symmetric, crackles (bilat lower lobes), rhonchi (scattered) Cardiovascular: regular rate-rhythm; No JVD; S1 and S2 Gastrointestinal: soft, round, audible bowel sounds Rectal: deferred Extremities: no lower extremity edema bilateral Neurologic/Psychiatric: grossly intact, power is 5/5 both on sides Skin: No rash, No ulcerations Data Review Labs Laboratory Tests 01/30/18 14:33: White Blood Count 7.0, Red Blood Count 4.83, Hemoglobin 15.6, Hematocrit 45, Mean Corpuscular Volume 94, Mean Corpuscular Hemoglobin 32, Mean Corpuscular Hemoglobin Concent 34, Red Cell Distribution Width 13.3, Platelet Count 183, Mean Platelet Volume 10.1, Neutrophils (%) (Auto) 52, Lymphocytes (%) (Auto) 38 , Monocytes (%) (Auto) 6, Eosinophils (%) (Auto) 3, Basophils (%) (Auto) 0, Neutrophils # (Auto) 3.7, Lymphocytes # (Auto) 2.6, Monocytes # (Auto) 0.5, Eosinophils # (Auto) 0.2, Basophils # (Auto) 0.0, Prothrombin Time 12.8, INR Comment 1.0, Activated Partial Thromboplast Time 30, D-Dimer 0.94H, Sodium Level 140, Potassium Level 4.2, Chloride Level 104, Carbon Dioxide Level 24, Anion Gap 12, Blood Urea Nitrogen 13, Creatinine 0.95, Estimat Glomerular Filtration Rate > 60, BUN/Creatinine Ratio 14, Glucose Level 175H, Calcium Level 9.1, Magnesium Level 2.2, Total Bilirubin 0.4, Aspartate Amino Transf (AST /SGOT) 29, Alanine Aminotransferase (ALT/SGPT) 41, Alkaline Phosphatase 94, Myoglobin 52.9, Troponin I < 0.30, B-Type Natriuretic Peptide 236.7H, Total Protein 6.8, Albumin 4.1 01/30/18 14:56: Group A Streptococcus Screen NEGATIVE 01/30/18 15:10: Urine Opiates Screen NEGATIVE, Urine Oxycodone Screen POSITIVEH, Urine Methadone Screen NEGATIVE, Urine Propoxyphene Screen NEGATIVE, Urine Barbiturates Screen NEGATIVE, Ur Tricyclic Antidepressants Screen NEGATIVE, Urine Phencyclidine Screen NEGATIVE, Urine Amphetamines Screen NEGATIVE, Urine Methamphetamines Screen POSITIVEH, Urine Benzodiazepines Screen POSITIVEH, Urine Cocaine Screen NEGATIVE, Urine Cannabinoids Screen NEGATIVE 01/30/18 20:57: Urine Opiates Screen NEGATIVE, Urine Oxycodone Screen POSITIVEH, Urine Methadone Screen NEGATIVE, Urine Propoxyphene Screen NEGATIVE, Urine Barbiturates Screen NEGATIVE, Ur Tricyclic Antidepressants Screen NEGATIVE, Urine Phencyclidine Screen NEGATIVE, Urine Amphetamines Screen NEGATIVE, Urine Methamphetamines Screen POSITIVEH, Urine Benzodiazepines Screen POSITIVEH, Urine Cocaine Screen NEGATIVE, Urine Cannabinoids Screen POSITIVEH 01/31/18 05:22: White Blood Count 11.8H, Red Blood Count 4.75, Hemoglobin 15.2, Hematocrit 44, Mean Corpuscular Volume 93, Mean Corpuscular Hemoglobin 32, Mean Corpuscular Hemoglobin Concent 35, Red Cell Distribution Width 13.2, Platelet Count 192, Mean Platelet Volume 10.0, Neutrophils (%) (Auto) 89H, Lymphocytes (%) (Auto) 10L, Monocytes (%) (Auto) 1, Eosinophils (%) (Auto) 0, Basophils (%) (Auto) 0, Neutrophils # (Auto) 10.5H, Lymphocytes # (Auto) 1.2, Monocytes # (Auto) 0.1, Eosinophils # (Auto) 0.0, Basophils # (Auto) 0.0, Magnesium Level 2.1, Troponin I < 0.30, Triglycerides Level 123, Cholesterol Level 177, LDL Cholesterol Direct 92, VLDL Cholesterol 25, HDL Cholesterol 36L, Thyroid Stimulating Hormone (TSH) 0.39 Microbiology 01/30/18 Influenza Types A,B Antigen (CLEMENCIA) - Final, Complete Radiology NAME: WALE JUAREZ [facility] REC#: [id number] PT STATUS: REG ER : 1970 PHYSICIAN: BRODY MENDOZA APRN ADMIT DATE: 01/30/18/ER Signed Date of Exam: 01/30/18 CHEST 1 VIEW, AP/PA ONLY CHEST 1 VIEW, AP/PA ONLY Indication: Chest pain Comparison: 06/19/2016. Findings: No focal airspace disease in the visualized lungs. Please note that the posterior lower lobes are poorly evaluated by portable radiography. No pleural effusion or pneumothorax. Normal cardiomediastinal silhouette. Impression: No acute cardiopulmonary process by portable radiography. Dictated by: Dictated on workstation # [id number] Dict: 01/30/181448 Trans: 01/30/181448 Interpreted by: YONI CLIFFORD MD Electronically signed by: YONI CLIFFORD MD 01/30/181448 NAME: WALE JUAREZ [facility] REC#: [id number] PT STATUS: REG ER : 1970 PHYSICIAN: BRODY MENDOZA APRN ADMIT DATE: 01/30/18/ER Draft Date of Exam:01/30/18 CT ANGIO CHEST W PROCEDURE: CT angiography of the chest with contrast. TECHNIQUE: Multiple contiguous axial images were obtained through the chest after uneventful bolus administration of intravenous contrast. Reconstructed CTA MIP acquisitions were also performed. INDICATION: Chest pain. Shortness of air. Cough. COMPARISON: None. FINDINGS: There is no evidence of acute pulmonary embolus to the first subsegmental division of the pulmonary arteries. Heart size is within normal limits. There is no large pericardial effusion. Multiple slightly prominent mediastinal and bilateral hilar lymph nodes are identified. Largest right hilar lymph node measures 1.6 x 1.4 cm (image 60, series 2). Largest left hilar lymph node measures 1.7 x 1.3 cm. Largest mediastinal lymph node measures 1.5 x 1.2 cm. Evaluation of the lung murray demonstrates no focal consolidation, pleural effusion, nor pneumothorax. There is a subtle nodular area of groundglass density within the left suprahilar region that measures approximately 1.7 cm in diameter. Otherwise, no suspicious pulmonary nodules or masses are identified. Bony structures show no acute abnormalities. No lytic or blastic bony lesions are identified. Included portions of the upper abdomen show a hypodense appearance to the hepatic parenchyma. IMPRESSION: 1. No CT evidence of acute pulmonary embolus to the first subsegmental division of the pulmonary arteries. 2. Mildly prominent bilateral hilar and mediastinal adenopathy. Etiology and clinical significance is indeterminate based on this exam alone. Both lymphoproliferative and lympho- invasive processes such as sarcoid or metastatic disease should be considered. 3. Ill-defined subtle groundglass density within the left superhilar region. Please see below for followup recommendations. 4. Hepatic steatosis. PULMONARY NODULE FOLLOW-UP Subsolid Nodules: <6 mm: * Ground glass - no routine follow up. (In certain suspicious nodules <6 mm, consider follow-up at 2 and 4 years. If solid component(s) or growth develops, consider resection.) * Part solid - no routine follow up. (In practice, part-solid nodules cannot be defined as such until 6mm or greater, and nodules <6 mm do not usually require follow-up. Persistent part-solid nodules with solid components 6mm or greater should be considered highly suspicious) * Multiple - Consider at 3-6 months. If stable, consider CT at 2 and 4 years. (Multiple <6mm pure ground-glass nodules are usually benign, but consider follow-up in selected patients at high risk at 2 and 4 years.) 6 mm or greater: ECG Impression ECG Comment SR with trig PVC's A/P-Cardiology Assessment/Admission Diagnosis Chest pain likely r/t acute asthmatic bronchitis Freq PVC's likely r/t acute asthmatic bronchitis and methamphetamine use H/O extensive left leg surgery d/t a fall from a horse in 2015 (reports 5 surgeries) Prob COPD HTN Pulmonary nodules per CT of the chest on 01-30-18. Mildly prominent bilateral hilar and mediastinal adenopathy. Etiology and clinical significance is indeterminate based on this exam alone. Both lymphoproliferative and lympho- invasive processes such as sarcoid or metastatic disease should be considered. Tobaccoism - cessation advised Symptoms suggestive of sleep apnea - advise further w/u as an outpt Positive drug screen for methamphetamines on 01-30-18 Clinical Quality Measures AMI/AHF: ASA po Prior to arrival: TRELL Jonhson Jan 30, 2018 16:52
[2018-01-30] MEDS ORDERED: AMOXICILLIN 500 MG (POLYMOX) CAP PO SCH (17:30)
--- NOTE | 2018-01-30 17:41 | Consultation-Cardiology ---
HPI-Cardiology Cardiology Consultation: Date of Consultation 01/30/18 Time Seen by Provider: 17:10 Date of Admission Attending Physician Suni Ryan MD Admitting Physician Suni Ryan MD Consulting Physician BELINDA PETTY MD, MA, FACP, FACC, FSCAI, CCDS HPI: Chief Complaint: PVCs Chest pain Mr. Juarez is a 47 year old male being admitted from the ED. He reports he has had increasing SOB over the course of the last year, but feels over the last few weeks it has been significantly worse. He reports chronic morning cough of thick, dark sputum. He reports yesterday he began to have sharp mid-sternal chest pain which radiated to the left side. He reports it was constant. No aggravating or alleviating symptoms. He reports around 11:00 this morning he feels the pain resolved gradually. He describes the SOB as a feeling that he can't get any air in. He reports he feels he is gasping for air at times. He reports waking up from sleep gasping at night. He reports episodes of a skipped heartbeat, which is more so at night. He states he has a home monitor and it reports his HR varies from the 40's to the 90's. He denies any syncope or near syncope. No c/o n/v/d. No c/o fever or chills. Review of Systems-Cardiology Review of Systems Constitutional: No chills, No fever, No weight loss, No weight gain Eyes: No blurred vision, No vision change Ears/Nose/Throat: No epistaxis Respiratory: As described under HPI Cardiovascular: As described under HPI Gastrointestinal: No constipation, No diarrhea, No nausea, No vomiting Genitourinary: No dysuria, No hematuria Musculoskeletal: other (chronic left leg and knee pain) Skin: No rash, No ulcerations Psychiatric/Neurological: anxiety, depression; No focal weakness, No syncope Hematologic: No bleeding abnormalities YQL-Khohna-Xrqven Hx Patient Social History Alcohol Use: Denies Use Recreational Drug Use: No Type Used: Cigars, Cigarettes 2nd Hand Smoke Exposure: Yes Recent Foreign Travel: No Recent Infectious Disease Expo: No Hospitalization with Isolation: Denies Physical Abuse Screen: No Sexual Abuse: No Immunizations Up To Date Tetanus Booster (TDap): Unknown Date of Influenza Vaccine: Sep 09, 2014 Past Medical History PMH As described under Assessment. Family Medical History Family Medical History: He report his father has CAD which was first diagnosed in his late 60's. Allergies and Home Medications Allergies Coded Allergies: Sanna Known Allergies (Unverified Allergy, Mild, 09/27/09) Home Medications Albuterol Sulfate 8.5 Gm Hfa.aer.ad, 2 PUFF IH Q4H Prescribed by: BIA ALCAZAR on 06/19/162140 Benzonatate 100 Mg Capsule, 1-2 TAB PO TID Prescribed by: BIA ALCAZAR on 06/19/162140 Carvedilol 3.125 Mg Tablet, 1 TAB PO BID, (Reported) Cyclobenzaprine HCl 5 Mg Tablet, 5 MG PO TID Prescribed by: BRODY MENDOZA on 08/18/171614 Gabapentin 600 Mg Tablet, 1 TAB PO BID, (Reported) Ibuprofen 800 Mg Tablet, 800 MG PO UD PRN for PAIN, (Reported) Levofloxacin 500 Mg Tablet, 500 MG PO DAILY Prescribed by: BIA ALCAZAR on 06/19/162140 Methylprednisolone 4 Mg Tab.ds.pk, 4 MG PO UD Prescribed by: BIA ALCAZAR on 06/19/162140 Prednisone 20 Mg Tab, 40 MG PO DAILY Prescribed by: BRODY MENDOZA on 08/18/171614 Tramadol HCl 50 Mg Tablet, 50 MG PO Q6H PRN for PAIN Prescribed by: SUNDEEP HASSAN on 05/22/16 0707 Patient Home Medication List Home Medication List Reviewed: Yes Physical Exam-Cardiology Physical Exam Vital Signs/I&O 01/30/18 01/30/18 01/30/18 14:28 14:32 14:52 Temp 97.6 Pulse 77 Resp 18 B/P (MAP) 133/78 (96) Pulse Ox 95 93 O2 Delivery Room Air Room Air Room Air Capillary Refill : Less Than 3 Seconds Constitutional: AAO x 3, well-developed, well-nourished HEENT: PERRL, hearing is well preserved, oral hygience is good Neck: No carotid bruit; carotid pulses are 2 + bilaterally Respiratory: No accessory muscle use, No respiratory distress; chest expansion is symmetric, chest is bilaterally symmetric, crackles (bilat lower lobes), rhonchi (scattered) Cardiovascular: regular rate-rhythm; No JVD; S1 and S2 Gastrointestinal: soft, round, audible bowel sounds Rectal: deferred Extremities: no lower extremity edema bilateral Neurologic/Psychiatric: grossly intact, power is 5/5 both on sides Skin: No rash, No ulcerations Data Review Labs Laboratory Tests 01/30/18 14:33: White Blood Count 7.0, Red Blood Count 4.83, Hemoglobin 15.6, Hematocrit 45, Mean Corpuscular Volume 94, Mean Corpuscular Hemoglobin 32, Mean Corpuscular Hemoglobin Concent 34, Red Cell Distribution Width 13.3, Platelet Count 183, Mean Platelet Volume 10.1, Neutrophils (%) (Auto) 52, Lymphocytes (%) (Auto) 38 , Monocytes (%) (Auto) 6, Eosinophils (%) (Auto) 3, Basophils (%) (Auto) 0, Neutrophils # (Auto) 3.7, Lymphocytes # (Auto) 2.6, Monocytes # (Auto) 0.5, Eosinophils # (Auto) 0.2, Basophils # (Auto) 0.0, Prothrombin Time 12.8, INR Comment 1.0, Activated Partial Thromboplast Time 30, D-Dimer 0.94H, Sodium Level 140, Potassium Level 4.2, Chloride Level 104, Carbon Dioxide Level 24, Anion Gap 12, Blood Urea Nitrogen 13, Creatinine 0.95, Estimat Glomerular Filtration Rate > 60, BUN/Creatinine Ratio 14, Glucose Level 175H, Calcium Level 9.1, Magnesium Level 2.2, Total Bilirubin 0.4, Aspartate Amino Transf (AST /SGOT) 29, Alanine Aminotransferase (ALT/SGPT) 41, Alkaline Phosphatase 94, Myoglobin 52.9, Troponin I < 0.30, B-Type Natriuretic Peptide 236.7H, Total Protein 6.8, Albumin 4.1 01/30/18 14:56: Group A Streptococcus Screen NEGATIVE 01/30/18 15:10: Urine Opiates Screen NEGATIVE, Urine Oxycodone Screen POSITIVEH, Urine Methadone Screen NEGATIVE, Urine Propoxyphene Screen NEGATIVE, Urine Barbiturates Screen NEGATIVE, Ur Tricyclic Antidepressants Screen NEGATIVE, Urine Phencyclidine Screen NEGATIVE, Urine Amphetamines Screen NEGATIVE, Urine Methamphetamines Screen POSITIVEH, Urine Benzodiazepines Screen POSITIVEH, Urine Cocaine Screen NEGATIVE, Urine Cannabinoids Screen NEGATIVE Microbiology 01/30/18 Influenza Types A,B Antigen (CLEMENCIA) - Final, Complete Laboratory Tests 01/30/18 14:33 A/P-Cardiology Assessment/Admission Diagnosis Chest pain likely r/t acute asthmatic bronchitis Freq PVC's likely r/t acute asthmatic bronchitis and methamphetamine use ( tested positive, but he feels it is false positive) H/O extensive left leg surgery d/t a fall from a horse in 2014 (reports 5 surgeries) Prob COPD HTN Pulmonary nodules per CT of the chest on 01-30-18. Mildly prominent bilateral hilar and mediastinal adenopathy. Etiology and clinical significance is indeterminate based on this exam alone. Both lymphoproliferative and lympho- invasive processes such as sarcoid or metastatic disease should be considered. Tobaccoism Hyperglycemia, suggestive of DM II Obesity with BMI approx 30 Symptoms suggestive of sleep apnea Positive drug screen for methamphetamines on 01-30-18 Discussion and Recomendations * Symptoms appear primarily pulmonary, but does have cor risk factors * Telemetry * Card enzymes * Monitor labs. Obtain fasting glucose * Advised to quit smoking * Advised sleep studies * Echo to eval for any cardiomyopathy * Consider myocard perf imaging when symptoms of shortness of breath improve * I had a detailed discussion with him and answered questions Clinical Quality Measures AMI/AHF: ASA po Prior to arrival: No DVT/VTE Risk/Contraindication: Risk Factor Score Per Nursin RFS Level Per Nursing on Admit: 4+=Very High BELINDA PETTY MD FACP FAC CCDS Jan 30, 2018 17:41
[2018-01-30] MEDS ORDERED: CATHETER FLUSH 10 ML SYR IV PRN (17:45)
[2018-01-30 17:59] VITALS: BP 161/78
[2018-01-30 20:21] VITALS: BP 135/64
[2018-01-30 21:21] LABS: BENZODIAZEPINES SCREEN URINE POSITIVE (NEGATIVE); CANNABINOID SCREEN, URINE POSITIVE (NEGATIVE); METHAMPHETAMINE SCREEN URINE S POSITIVE (NEGATIVE); OXYCODONE STAT POSITIVE (NEGATIVE)
[2018-01-30 21:22] LABS: AMPHETAMINE SCREEN, URINE NEGATIVE (NEGATIVE); BARBITURATE SCREEN URINE NEGATIVE (NEGATIVE); COCAINE SCREEN URINE NEGATIVE (NEGATIVE); METHADONE STAT NEGATIVE (NEGATIVE); OPIATE SCREEN URINE NEGATIVE (NEGATIVE); PROPOXYPHENE STAT NEGATIVE (NEGATIVE); TRICYCLIC ANTIDEPRESSANTS SCRE NEGATIVE (NEGATIVE)
[2018-01-30] MEDS ORDERED: oxyCODONE/APAP 5/325MG (PERCOCET 5) TABLET ONE (21:27)
[2018-01-30] MEDS: DIAZEPAM 5 MG (VALIUM) TABLET PO PRN (21:31)
[2018-01-30] MEDS: oxyCODONE/APAP 5/325MG (PERCOCET 5) TABLET PO PRN (21:32)
[2018-01-30 21:37] VITALS: BP 135/64
[2018-01-30] MEDS ORDERED: RT-ALBUTEROL/IPRATROPIUM 3 ML (DUONEB) VIAL INH PRN (22:00)
[2018-01-30] MEDS: CATHETER FLUSH 10 ML SYR IV SCH (22:11)
[2018-01-30] MEDS: methylPREDNISolone 125 MG (Solu-MEDROL) VIAL IV SCH (22:11)
[2018-01-31] VITALS: BP 140/80
[2018-01-31] MEDS: AMOXICILLIN 500 MG (POLYMOX) CAP PO SCH ×2 (01:31→09:14)
[2018-01-31 04:00] VITALS: BP 148/70
[2018-01-31 05:30] LABS: BASOPHILS % (AUTO) 0 % (0-10); EOSINOPHILS % (AUTO) 0 % (0-10); HEMATOCRIT 44 % (40-54); HEMOGLOBIN 15.2 G/DL (13.3-17.7); LYMPHOCYTES # (AUTO) 1.2 X 10^3 (1.0-4.0); LYMPHOCYTES % (AUTO) 10 % (12-44); MEAN CORPUSCULAR HEMOGLOBIN 32 PG (25-34); MEAN CORPUSCULAR HGB CONC 35 G/DL (32-36); MEAN CORPUSCULAR VOLUME 93 FL (80-99); MONOCYTES # (AUTO) 0.1 X 10^3 (0.0-1.0); MONOCYTES % (AUTO) 1 % (0-12); NEUTROPHILS # (AUTO) 10.5 X 10^3 (1.8-7.8); NEUTROPHILS % (AUTO) 89 % (42-75); PLATELET COUNT 192 10^3/uL (130-400); RED BLOOD COUNT 4.75 10^6/uL (4.35-5.85); RED CELL DISTRIBUTION WIDTH 13.2 % (10.0-14.5); WHITE BLOOD COUNT 11.8 10^3/uL (4.3-11.0)
[2018-01-31] MEDS: methylPREDNISolone 125 MG (Solu-MEDROL) VIAL IV SCH ×3 (05:46→22:15)
[2018-01-31] MEDS: oxyCODONE/APAP 5/325MG (PERCOCET 5) TABLET PO PRN ×3 (05:46→17:04)
[2018-01-31] MEDS: CATHETER FLUSH 10 ML SYR IV SCH ×3 (05:47→22:15)
[2018-01-31 05:49] LABS: CHOLESTEROL 177 MG/DL (< 200); HDL CHOLESTEROL 36 MG/DL (40-60); MAGNESIUM 2.1 MG/DL (1.8-2.4); TRIGLYCERIDES 123 MG/DL (<150); VLDL CHOLESTEROL 25 MG/DL (5-40)
[2018-01-31 08:00] VITALS: BP 153/85
[2018-01-31] MEDS ORDERED: DIAZEPAM 5 MG (VALIUM) TABLET PO SCH (09:00)
[2018-01-31] MEDS: RT-ALBUTEROL/IPRATROPIUM 3 ML (DUONEB) VIAL INH SCH ×2 (09:06→20:08)
[2018-01-31] MEDS: ASPIRIN 81 MG CHEW (CHILDREN'S ASA) PO SCH (09:14)
[2018-01-31] MEDS ORDERED: OXYC-471 PO (09:33)
[2018-01-31] MEDS ORDERED: DIAZ5TAB3 PO (09:33)
[2018-01-31] MEDS ORDERED: ALKA-SELTZER PO (09:37)
--- NOTE | 2018-01-31 09:46 | History & Physicial ---
History of Present Illness History of Present Illness Reason for visit/HPI Pt presented to the hospital with left-sided chest pain, he reports that the pain is worse with deep breathing. The pain began yesterday. He's had a cough and wheezing as well. Believes this may be a chest cold. He reports that the breathing is significantly worse than usual. He reports that he does smoke, has been around marijuana smoke. Date of Admission Jan 30, 2018 at 16:14 Date Seen by Provider: Jan 31, 2018 Time Seen by Provider: 09:30 I consulted on this patient on 01/31/18 09:46 Attending Physician Bradly Ryan MD Admitting Physician Bradly Ryan MD Consult Allergies and Home Medications Allergies Coded Allergies: NKANo Known Allergies (Unverified Allergy, Mild, 09/27/09) Home Medications Aspirin 81 Mg Tab.chew, 81 MG PO DAILY Prescribed by: BRADLY RYAN on 02/01/18 100 Azithromycin 250 Mg Tablet, 250 MG PO UD TAKE 2 TABLETS ON DAY ONE THEN TAKE 1 TABLET DAILY FOR FOUR MORE DAYS Prescribed by: BRADLY RYAN on 02/01/18 100 Cephalexin 500 Mg Capsule, 500 MG PO QID Prescribed by: BRADLY RYAN on 02/01/18 100 Diazepam 5 Mg Tablet, 5 MG PO BID PRN for ANXIETY/LEG SPASMS, (Reported) Fluticasone/Salmeterol 12 Gm Hfa.aer.ad, 2 PUFF IH BID@08,20 Prescribed by: BRADLY RYAN on 02/01/18 100 Gabapentin 600 Mg Tablet, 600 MG PO TID PRN for NERVE PAIN, (Reported) LAST FILLED 02-12-17 #45 Losartan Potassium 100 Mg Tablet, 100 MG PO DAILY, (Reported) Oxycodone HCl/Acetaminophen 1 Each Tablet, 1 TAB PO TID PRN for PAIN-MODERATE, ( Reported) Prednisone 20 Mg Tab, 20 MG PO DAILY Take 3 tabs(60mg)daily, decrease by 1/2 tab(10mg)daily. Prescribed by: BRADLY RYAN on 02/01/18 1005 [[place]] , PO UD PRN for COLD, (Reported) Patient Home Medication List Home Medication List Reviewed: Yes Past Hociafl-Yhxnqo-Uczqnk Hx Patient Social History Marrital Status: Living Status: lives with spouse Alcohol Use: Denies Use Number of Drinks Today: AA Alcohol Beverage of Choice: Beer Recreational Drug Use: No Type Used: Cigars, Cigarettes 2nd Hand Smoke Exposure: Yes Physical Abuse Screen: No Sexual Abuse: No Recent Foreign Travel: No Contact w/other who traveled: No Recent Hopitalizations: No Recent Infectious Disease Expo: No Immunizations Up To Date Tetanus Booster (TDap): Unknown Pediatric: No Date of Influenza Vaccine: Sep 09, 2014 Seasonal Allergies Seasonal Allergies: No Surgeries Yes (LEFT LOWER LEG SURGERY X 4) Orthopedic Respiratory No Currently Using CPAP: No Currently Using BIPAP: No Cardiovascular Yes (bigemeny, trigemeny) Hypertension, Irregular Heartbeat Neurological No Reproductive System Hx Reproductive Disorders: No Sexually Transmitted Disease: No HIV/AIDS: No Genitourinary No Gastrointestinal No Musculoskeletal Yes (LEFT LOWER LEG INJURY) Chronic Back Pain, Fractures Endocrine History of Endocrine Disorders: No Are Your Blood Sugars Over 250: No HEENT History of HEENT Disorders: No Cancer No Psychosocial History of Psychiatric Problem: No Integumentary History of Skin or Integumenta: No Blood Transfusions History of Blood Disorders: No Adverse Reaction to a Blood Tr: No Reviewed Nursing Assessment Reviewed/Agree w Nursing PMH: Yes Family Medical History Significant Family History: Heart Disease, Cancer, Hypertension Constitutional: No chills, No fever; malaise, weakness Respiratory: no symptoms reported Cardiovascular: no symptoms reported; No chest pain, No edema, No palpitations Gastrointestinal: No abdominal pain, No constipation, No diarrhea Genitourinary: no symptoms reported Musculoskeletal: no symptoms reported Psychiatric/Neurological: Denies Anxiety, Denies Depressed All Other Systems Reviewed Negative Unless Noted: Yes Physical Exam Vital Signs Capillary Refill : Less Than 3 Seconds General Appearance: No Apparent Distress, WD/WN HEENT: PERRL/EOMI, Pharynx Normal Neck: Full Range of Motion, Supple Respiratory: Chest Non Tender, Decreased Breath Sounds Cardiovascular: Regular Rate, Rhythm, No Edema Gastrointestinal: Normal Bowel Sounds, No Organomegaly, Soft Rectal: Deferred Extremity: Normal Capillary Refill, Normal Inspection, Non Tender, No Calf Tenderness Neurologic/Psychiatric: Alert, Oriented x3, No Motor/Sensory Deficits, Normal Mood/Affect Skin: Warm/Dry Lymphatic: No Adenopathy Assessment/Plan Assessment and Plan chest pain respiratory distress dyspnea cough tobacco abuse chest pain - pt to have stress testing respiratory distress - improved with breathing treatments - start steroids, monitor symptoms. dyspnea and cough - improved - monitor tobacco abuse Admission Diagnosis chest pain respiratory distress dyspnea cough tobacco abuse Admission Status: Inpatient Order (span 2 midnights) Reason for Inpatient Admission: chest pain, needs stress testing - further monitoring of symptoms to determine cause of severe dyspnea requiring oxygenation. Clinical Quality Measures AMI/AHF: ASA po Prior to arrival: No DVT/VTE Risk/Contraindication: Risk Factor Score Per Nursin RFS Level Per Nursing on Admit: 4+=Very High BRADLY RYAN MD Jan 31, 2018 09:46
[2018-01-31] MEDS ORDERED: AZITHROMYCIN INJECTION 500 MG in NS (IVPB) 250 ML IV NR (09:48)
[2018-01-31] MEDS ORDERED: cefTRIAXone INJECTION 1,000 MG in NS (IVPB) 100 ML IV NR (09:48)
[2018-01-31] MEDS ORDERED: LOSARTAN 50 MG (COZAAR) TAB PO NR (09:49)
--- NOTE | 2018-01-31 09:59 | Progress Note-Cardiology ---
Cardiology SOAP Progress Note Subjective: Sitting up in bed. Tearful this morning after discussion with his PCP regarding CT of the chest results. Reports his breathing is unchanged from yesterday. Reports he is coughing more today. No c/o CP or palpitations. Objective: I&O/Vital Signs 01/31/18 01/31/18 01/31/18 01/31/18 00:00 01:00 04:00 09:06 Temp 99.4 97.7 Pulse 80 77 52 Resp 20 18 B/P (MAP) 140/80 (100) 148/70 (96) Pulse Ox 90 92 96 O2 Delivery Room Air Room Air Room Air 01/31/18 09:13 O2 Delivery Room Air 01/31/18 00:00 Intake Total 350 ml Balance 350 ml Weight (Pounds): 249 Weight (Ounces): 8.0 Weight (Calculated Kilograms): 113.231417 Constitutional: AAO x 3, well-developed, well-nourished Respiratory: No accessory muscle use, No respiratory distress; chest expansion is symmetric, chest is bilaterally symmetric, crackles (bilat lower lobes), rhonchi (scattered) Cardiovascular: regular rate-rhythm; No JVD; S1 and S2 Gastrointestional: soft, round, audible bowel sounds Extremities: no lower extremity edema bilateral Neurologic/Psychiatric: grossly intact, power is 5/5 both on sides Skin: No rash, No ulcerations Results/Procedures: Labs Laboratory Tests 01/30/18 14:33: White Blood Count 7.0, Red Blood Count 4.83, Hemoglobin 15.6, Hematocrit 45, Mean Corpuscular Volume 94, Mean Corpuscular Hemoglobin 32, Mean Corpuscular Hemoglobin Concent 34, Red Cell Distribution Width 13.3, Platelet Count 183, Mean Platelet Volume 10.1, Neutrophils (%) (Auto) 52, Lymphocytes (%) (Auto) 38 , Monocytes (%) (Auto) 6, Eosinophils (%) (Auto) 3, Basophils (%) (Auto) 0, Neutrophils # (Auto) 3.7, Lymphocytes # (Auto) 2.6, Monocytes # (Auto) 0.5, Eosinophils # (Auto) 0.2, Basophils # (Auto) 0.0, Prothrombin Time 12.8, INR Comment 1.0, Activated Partial Thromboplast Time 30, D-Dimer 0.94H, Sodium Level 140, Potassium Level 4.2, Chloride Level 104, Carbon Dioxide Level 24, Anion Gap 12, Blood Urea Nitrogen 13, Creatinine 0.95, Estimat Glomerular Filtration Rate > 60, BUN/Creatinine Ratio 14, Glucose Level 175H, Calcium Level 9.1, Magnesium Level 2.2, Total Bilirubin 0.4, Aspartate Amino Transf (AST /SGOT) 29, Alanine Aminotransferase (ALT/SGPT) 41, Alkaline Phosphatase 94, Myoglobin 52.9, Troponin I < 0.30, B-Type Natriuretic Peptide 236.7H, Total Protein 6.8, Albumin 4.1 01/30/18 14:56: Group A Streptococcus Screen NEGATIVE 01/30/18 15:10: Urine Opiates Screen NEGATIVE, Urine Oxycodone Screen POSITIVEH, Urine Methadone Screen NEGATIVE, Urine Propoxyphene Screen NEGATIVE, Urine Barbiturates Screen NEGATIVE, Ur Tricyclic Antidepressants Screen NEGATIVE, Urine Phencyclidine Screen NEGATIVE, Urine Amphetamines Screen NEGATIVE, Urine Methamphetamines Screen POSITIVEH, Urine Benzodiazepines Screen POSITIVEH, Urine Cocaine Screen NEGATIVE, Urine Cannabinoids Screen NEGATIVE 01/30/18 20:57: Urine Opiates Screen NEGATIVE, Urine Oxycodone Screen POSITIVEH, Urine Methadone Screen NEGATIVE, Urine Propoxyphene Screen NEGATIVE, Urine Barbiturates Screen NEGATIVE, Ur Tricyclic Antidepressants Screen NEGATIVE, Urine Phencyclidine Screen NEGATIVE, Urine Amphetamines Screen NEGATIVE, Urine Methamphetamines Screen POSITIVEH, Urine Benzodiazepines Screen POSITIVEH, Urine Cocaine Screen NEGATIVE, Urine Cannabinoids Screen POSITIVEH 01/31/18 05:22: White Blood Count 11.8H, Red Blood Count 4.75, Hemoglobin 15.2, Hematocrit 44, Mean Corpuscular Volume 93, Mean Corpuscular Hemoglobin 32, Mean Corpuscular Hemoglobin Concent 35, Red Cell Distribution Width 13.2, Platelet Count 192, Mean Platelet Volume 10.0, Neutrophils (%) (Auto) 89H, Lymphocytes (%) (Auto) 10L, Monocytes (%) (Auto) 1, Eosinophils (%) (Auto) 0, Basophils (%) (Auto) 0, Neutrophils # (Auto) 10.5H, Lymphocytes # (Auto) 1.2, Monocytes # (Auto) 0.1, Eosinophils # (Auto) 0.0, Basophils # (Auto) 0.0, Magnesium Level 2.1, Lactate Dehydrogenase 211, Troponin I < 0.30, Triglycerides Level 123, Cholesterol Level 177, LDL Cholesterol Direct 92, VLDL Cholesterol 25, HDL Cholesterol 36L, Thyroid Stimulating Hormone (TSH) 0.39 Microbiology 01/30/18 Influenza Types A,B Antigen (CLEMENCIA) - Final, Complete A/P: Assessment: Chest pain likely r/t acute asthmatic bronchitis, but cannot exclude a cardiac source Freq PVC's likely r/t acute asthmatic bronchitis and methamphetamine use ( tested positive, but he feels it is false positive) H/O extensive left leg surgery d/t a fall from a horse in 2014 (reports 5 surgeries) Prob COPD HTN Pulmonary nodules per CT of the chest on 01-30-18. Mildly prominent bilateral hilar and mediastinal adenopathy. Etiology and clinical significance is indeterminate based on this exam alone. Both lymphoproliferative and lympho- invasive processes such as sarcoid or metastatic disease should be considered. Tobaccoism Hyperglycemia, suggestive of DM II Obesity with BMI approx 30 Symptoms suggestive of sleep apnea Positive drug screen for methamphetamines on 01-30-18 and marijuana use - advised immediate and complete cessation TSH WNL on lab of 01-31-18 Plan: * Symptoms appear primarily pulmonary, but does have cor risk factors * Continue telemetry * Card analyzers do not show evidence of ACX * Monitor labs. Obtain fasting glucose * Advised to quit smoking * Advised sleep studies as an out pt * Echo to eval for any cardiomyopathy - pending * Consider myocard perf imaging when symptoms of shortness of breath improve * CT results show pulmonary nodules which is being followed by medical services - oncology has been consulted * TSH 0.39 on lab of 01-31-18 Physician Assessment Physician Assessment Shortness of breath better, but not resolved. 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
[2018-01-31] MEDS ORDERED: LOSA100T28 PO (10:02)
--- OUTSIDE RECORDS SUMMARY | 2018-01-31 11:05 | XMS REPORT | Clinical Summary ---
Author Author [facility] Organization [facility] Address Unknown Phone Unavailable Care Team Providers Care Neonatal Critical Care Nurse Name Role Phone ChiCholo arango PCP Source Comments Some departments are not documenting in the electronic medical record. If you do not see the information that you expected, contact Release of Information in the Health Information Management department at [phone] for further assistance in locating additional records.[facility] Allergies Not on File Current Medications Not on file Active Problems Not on file Social History Tobacco Use Types Packs/Day Years Used Date Never Assessed Sex Assigned at Date Recorded Not on file Last Filed Vital Signs Not on file Plan of Treatment Health Maintenance Due Date Last Done Comments PHYSICAL (COMPREHENSIVE) 1977 EXAM PERTUSSIS VACCINE 1981 HIV SCREENING 1985 TETANUS VACCINE 1987 INFLUENZA VACCINE 07/22/2018 Results Not on filefrom Last 3 Months
--- OUTSIDE RECORDS SUMMARY | 2018-01-31 11:05 | XMS REPORT | CCD ---
Author Author [facility] Organization [facility] Address [address] [place] [address] Phone Care Team Providers Care Student Services Vice President Name Role Phone PP Unavailable CCM Unavailable Summary Purpose Interface Exchange Insurance Providers Payer name Policy type / Coverage type Covered alliance party ID Effective Begin Date Effective End Date WPS Medicare Part B Medicare Part B [id number] 2017 Unknown Family history Sister Diagnosis Age At Onset Arthritis Unknown Diabetes mellitus Type 2 Unknown Father Diagnosis Age At Onset Alcoholism Unknown Brother Diagnosis Age At Onset Arthritis Unknown Son Diagnosis Age At Onset Asthma Unknown Mother Diagnosis Age At Onset Arthritis Unknown Cancer Unknown Diabetes mellitus Type 2 Unknown Hypertension Unknown Social History Social History Element Codes Description Effective Dates Marital status Unknown Celia Juarez 11/19/2017 Number of children Unknown 2 11/19/2017 Employment Unknown Currently unemployed disabled 11/19/[address]: 40916579 Current every day smoker cigars 11/19/[address]: 803605567 Never drinks alcohol 11/19/2017 On Disability Unknown Yes 11/19/2017 Allergies, Adverse Reactions, Alerts Allergies, Adverse Reactions, Alerts data not found Past Medical History Illness Codes Condition Status Onset Date Resolved Date Chronic pain syndrome ICD-9: 338.4 ICD-10: G89.4 Active 11/19/2017 Unknown Essential (primary) hypertension ICD-9: 401.1 ICD-10: I10 Active 11/19/2017 Unknown Pain in left leg ICD-9 : 729.5 ICD-10: M79.605 Active 11/19/2017 Unknown Problems Condition Codes Effective Dates Condition Status Chronic pain syndrome ICD-9: 338.4 ICD-10: G89.4 11/19/2017 Active Essential (primary) hypertension ICD-9: 401.1 ICD-10: I10 11/19/2017 Active Pain in left leg ICD-9 : 729.5 ICD-10: M79.605 11/19/2017 Active Medications Medication Codes Instructions Start Date Stop Date Status Fill Instructions losartan 50 mg tablet RxNorm: 341353 1 Tablet(s) PO daily 201706/16/2018 Active gabapentin 600 mg tablet RxNorm: 682144 1 Tablet(s) PO TID No Start Date Active Valium 5 mg tablet RxNorm: 780388 1 Tablet(s) PO BID as needed No Start Date Active Percocet 5 mg-325 mg tablet RxNorm: 6006309 1 Tablet(s) PO TID as needed No Start Date Active carvedilol 3.125 mg tablet RxNorm: 982938 1 Tablet(s) PO BID No Start Date 11/19/2017 Inactive Medication Administered No Medication Administered data Immunizations No Immunization data Assessments Condition Codes Effective Dates Pain in left leg ICD-10: M79.605 ICD-9: 729.5 11/19/2017 Essential (primary) hypertension ICD-10: I10 ICD-9: 401.1 11/19/2017 Chronic pain syndrome ICD-10: G89.4 ICD-9: 338.4 11/19/2017 Reason For Visit Reason For Visit Effective Dates Notes hypertension 11/19/2017 Results No Results data Review of Systems System Result Effective Dates Constitutional No recent illness 2017 Constitutional No chills 11/19/2017 Constitutional fatigue 11/19/2017 Constitutional No fever 11/19/2017 Constitutional No insomnia 11/19/2017 Constitutional No malaise 11/19/2017 Eyes No vision change 11/19/2017 Ears/Nose/Throat/Neck No dental pain Ears/Nose/Throat/Neck No dizziness 2017 Ears/Nose/Throat/Neck No dysphagia 2017 Ears/Nose/Throat/Neck No headache 2017 Ears/Nose/Throat/Neck No hearing loss Ears/Nose/Throat/Neck No nasal allergies 11/19/2017 Ears/Nose/Throat/Neck No sore throat Ears/Nose/Throat/Neck No postnasal drip 11/19/2017 Ears/Nose/Throat/Neck No sinus congestion 11/19/2017 Cardiovascular No chest pain/pressure Cardiovascular No dyspnea 11/19/2017 Cardiovascular No edema 11/19/2017 Cardiovascular No exercise intolerance Cardiovascular No fatigue 11/19/2017 Cardiovascular No near-syncope/dizziness 11/19/2017 Respiratory No chest tightness 2017 Respiratory No cough 11/19/2017 Respiratory No dyspnea 11/19/2017 Respiratory No pedal edema 11/19/2017 Gastrointestinal No abdominal pain 2017 Gastrointestinal No constipation 2017 Gastrointestinal No diarrhea 11/19/2017 Gastrointestinal No gastroesophageal reflux 11/19/2017 Gastrointestinal No nausea 11/19/2017 Gastrointestinal No vomiting 11/19/2017 Genitourinary/Nephrology No dysuria 11/19 Genitourinary/Nephrology No nocturia Genitourinary/Nephrology No urinary incontinence 11/19/2017 Musculoskeletal stiffness 11/19/2017 Musculoskeletal No swelling 11/19/2017 Musculoskeletal No muscle weakness 2017 Musculoskeletal No myalgias 11/19/2017 Dermatologic No rash 11/19/2017 Dermatologic No sores 11/19/2017 Neurologic No dizziness 11/19/2017 Neurologic No headache 11/19/2017 Neurologic No neck pain 11/19/2017 Neurologic No syncope 11/19/2017 Psychiatric No anxiety 11/19/2017 Psychiatric No depression 11/19/2017 Physical Exam Exam Name System Name Item Name Status Result Effective Dates Notes Full Exam - General 1994 Constitutional general appearance Development: well developed 11/19/2017 None Full Exam - General 1994 Constitutional general appearance Development: appears stated age 0111/19/2017 None Full Exam - General 1994 Constitutional general appearance Hygiene/Attention to Grooming: good hygiene 11/19/2017 None Full Exam - General 1994 Eyes conjunctiva /eyelids Overall: conjunctiva clear 11/19/2017 None Full Exam - General 1994 Eyes conjunctiva /eyelids Overall: cornea clear 11/19/2017 None Full Exam - General 1994 Eyes conjunctiva /eyelids Overall: eyelids normal 11/19/2017 None Full Exam - General 1994 Eyes pupils and irises Overall: pupils equal, round, reactive to light and accomodation 11/19/2017 None Full Exam - General 1994 Ears/Nose/Throat otoscopic exam Overall: external auditory canals clear 11/19/2017 None Full Exam - General 1994 Ears/Nose/Throat otoscopic exam Overall: tympanic membranes clear 11/19/2017 None Full Exam - General 1994 Ears/Nose/Throat lips/teeth/gingiva Overall: benign lips 11/19/2017 None Full Exam - General 1994 Ears/Nose/Throat lips/teeth/gingiva Overall: normal dentition 11/19/2017 None Full Exam - General 1994 Ears/Nose/Throat oral cavity/pharynx/larynx Overall: oral mucosa clear 11/19/2017 None Full Exam - General 1994 Ears/Nose/Throat oral cavity/pharynx/larynx Overall: oropharyngeal mucosa clear 11/19/2017 None Full Exam - General 1994 Ears/Nose/Throat oral cavity/pharynx/larynx Overall: hypopharynx benign 11/19/2017 None Full Exam - General 1994 Ears/Nose/Throat oral cavity/pharynx/larynx Overall: no masses 11/19/2017 None Full Exam - General 1994 Respiratory auscultation Overall: breath sounds clear bilaterally 11/19/2017 None Full Exam - General 1994 Respiratory respiratory effort/rhythm Overall: no retractions 11/19/2017 None Full Exam - General 1994 Respiratory respiratory effort/rhythm Overall: normal rate 11/19/2017 None Full Exam - General 1994 Cardiovascular extremities Overall: no clubbing 11/19/2017 None Full Exam - General 1994 Cardiovascular auscultation of heart Overall: regular rate 11/19/2017 None Full Exam - General 1994 Cardiovascular auscultation of heart Overall: normal heart sounds 11/19/2017 None Full Exam - General 1994 Abdomen abdominal exam Overall: no tenderness 11/19/2017 None Full Exam - General 1994 Abdomen abdominal exam Overall: normal bowel sounds 11/19/2017 None Full Exam - General 1994 Lymphatic neck nodes Overall: anterior cervical chain benign 11/19/2017 None Full Exam - General 1994 Lymphatic neck nodes Overall: posterior cervical chain benign 11/19/2017 None Full Exam - General 1994 Musculoskeletal spine, ribs and pelvis Overall: spine benign 11/19/2017 None Full Exam - General 1994 Musculoskeletal spine, ribs and pelvis Overall: sacroiliac joint benign 11/19/2017 None Full Exam - General 1994 Musculoskeletal spine, ribs and pelvis Overall: good posture 11/19/2017 None Full Exam - General 1994 Musculoskeletal head and neck Overall: head atraumatic 11/19/2017 None Full Exam - General 1994 Musculoskeletal head and neck Overall: cervical spine benign 11/19/2017 None Full Exam - General 1994 Integument inspection of skin Overall: few scattered moles, no gross abnormalities 11/19/2017 None Full Exam - General 1994 Neurologic deep tendon reflexes Overall: deep tendon reflexes intact 11/19/2017 None Full Exam - General 1994 Neurologic cranial nerves Overall: crainial nerves 2 - 12 grossly intact 11/19/2017 None Full Exam - General 1994 Psychiatric orientation/consciousness Overall: oriented to person, place and time 11/19/2017 None Full Exam - General 1994 Psychiatric mood and affect Overall: normal mood and affect 11/19/2017 None Full Exam - General 1994 Musculoskeletal lower extremity Inspection - lower leg: deformity 11/19/2017 None Full Exam - General 1994 Musculoskeletal lower extremity Inspection - lower leg: presence of a scar 11/19/2017 large scar medially left lower leg to knee Procedures No Procedures data Vital Signs Date Vital 11/19/2017 Blood Pressure 1: 150/90 Code : 8480-6 BMI: 32.6 Code : 90934-0 Heart Rate 1 : 76 bpm Height: 6'4" SpO2: 98% Weight: 268 lbs Functional Status No Functional Status data History of Present Illness Symptom Name Status Result Effective Date Notes hypertension Onset and Resolution ongoing 11/19/2017 None hypertension Onset of Symptom during adulthood 11/19/2017 None hypertension Blood Pressure Values not checking blood pressure at home 11/19/2017 None hypertension Alleviating Factors medication 11/19/2017 None hypertension Pertinent Findings dizziness 11/19/2017 sometimes if he gets up too fast hypertension Pertinent Findings Denies dyspnea 11/19/2017 None hypertension Pertinent Findings edema 11/19/2017 in his left leg lower leg pain Location on the left 11/19/2017 None lower leg pain Quality chronic 11/19/2017 None lower leg pain Quality constant 11/19/2017 None lower leg pain Onset and Resolution ongoing 11/19/2017 None lower leg pain Onset of Symptom 2.5+ years ago 11/19/2017 since December 2014 lower leg pain Frequency of Episodes daily 11/19/2017 None lower leg pain Limitation on Activities allows weight bearing activity 11/19/2017 None lower leg pain Significant Medical Conditions prior injury 11/19/2017 None Advance Directives No Advance Directive data Encounters Encounter Performer Location Codes Date () OFFICE VISIT, NEW - LEVEL 4 Diagnosis: Essential (primary) hypertension[ICD10: I10] Diagnosis: Chronic pain syndrome[ICD10: G89.4] Diagnosis: Pain in left leg[ICD10: M79.605] [facility] CPT-4: 33110 11/19/2017 Plan of Care Planned Activity Notes Codes Status Date Visit Plan: Hypertension - uncontrolled newly diagnosed- the patient's medications have been modified as documented in the visit note. The patient has been counseled to cut back on salt in diet for a no added salt diet, low fat diet, start an exercise program with low weight bearing exercises and higher aerobic activity for heart health. The patient is to check blood pressure readings as an outpatient and either fax, call, or email the readings to the office next week for practitioner to review. The pt is to call for acute concerns. Chronic Pain Syndrome - pt has chronic pain in left leg - has been maintained on current medications, has not sought out other medications, only uses PRN pain medications as directed, and understands the consequences of over- medication. 11/19/2017 Patient Education: Patient Medication Summary Completed 11/19/2017 Care Plan: Comp Metabolic Pending 11/19/2017 Care Plan: Cbc With Differential Pending 11/19/2017 Care Plan: Lipid Pending 11/19/2017 Care Plan: Tsh Pending 11/19/2017 Instructions Comment lidocaine patch - 4% - Salonpas - is the brand name - use topically on the leg when you have intense discomfort.. Hypertension - uncontrolled newly diagnosed- the patient's medications have been modified as documented in the visit note. The patient has been counseled to cut back on salt in diet for a no added salt diet, low fat diet, start an exercise program with low weight bearing exercises and higher aerobic activity for heart health. The patient is to check blood pressure readings as an outpatient and either fax , call, or email the readings to the office next week for practitioner to review. The pt is to call for acute concerns. Chronic Pain Syndrome - pt has chronic pain in left leg - has been maintained on current medications, has not sought out other medications, only uses PRN pain medications as directed, and understands the consequences of over- medication.
[2018-01-31] MEDS: DIAZEPAM 5 MG (VALIUM) TABLET PO PRN ×2 (11:06→17:04)
--- OUTSIDE RECORDS SUMMARY | 2018-01-31 11:06 | XMS REPORT | Continuity of Care Document ---
Author Author [facility] Organization [facility] Address Unknown Phone Unavailable Allergies Active Description Code Type Severity Reaction Onset Reported/Identified Relationship to Patient Clinical Status Yes NKANo Known Allergies NKA Miscellaneous Allergy Mild N/A 09/27/2009 Medications There is no data. Problems Date Dx Coded Attending Type Code Diagnosis Diagnosed By 01/02/2010 Ot 848.8 SPRAIN NEC 01/02/2010 Ot 959.12 01/02/2010 Ot E000.8 OTHER EXTERNAL CAUSE STATUS 01/02/2010 Ot E030 UNSPECIFIED ACTIVITY 01/02/2010 [address]/HIGHWAY 01/02/2010 Ot E888.9 FALL NOS 01/19/2010 Ot 578.0 01/19/2010 Ot 578.9 GASTROINTEST HEMORR NOS 04/30/2010 Ot 521.00 UNSPEC DENTAL CARIES 04/30/2010 Ot 525.9 DENTAL DISORDER NOS 08/11/2010 Ot 525.9 DENTAL DISORDER NOS 05/02/2013 KEVYN TAVERAS, ROSIO Santos Ot 786.50 CHEST PAIN NOS 06/06/2014 BRODY MENDOZA DEWAXER Ot 682.6 CELLULITIS OF LEG 06/06/2014 BRODY MENDOZA DEWAXER Ot 911.4 INSECT BITE TRUNK 06/06/2014 BRODY MENDOZA DEWAXER Ot 916.5 INSECT BITE HIP/LEG-INF 06/06/2014 BRODY MENDOZA DEWAXER Ot E000.8 OTHER EXTERNAL CAUSE STATUS 06/06/2014 BRODY MENDOZA DEWAXER Ot E016.9 OT ACT INVG PROPERTY LAND MAINT,BUILD 06/06/2014 BRODY MENDOZA DEWAXER Ot E849.0 ACCIDENT IN HOME 06/06/2014 BRODY MENDOZA DEWAXER Ot E906.4 NONVENOM ARTHROPOD BITE 10/28/2014 SUNDEEP HASSAN MD Ot 487.1 FLU W RESP MANIFEST NEC 10/28/2014 SUNDEEP HASSAN MD Ot 780.60 FEVER, UNSPECIFIED 01/10/2015 SUNDEEP HASSAN MD Ot 729.5 PAIN IN LIMB 01/10/2015 SUNDEEP HASSAN MD Ot 823.80 FX TIBIA NOS-CLOSED 01/10/2015 SUNDEEP HASSAN MD Ot E000.8 OTHER EXTERNAL CAUSE STATUS 01/10/2015 SUNDEEP HASSAN MD Ot E884.9 FALL-1 LEVEL TO OTH NEC 07/29/2015 BRODY MENDOZA APRN Ot M25.562 PAIN IN LEFT KNEE 07/29/2015 Ot 722.52 10/06/2015 Ot 722.52 10/06/2015 BIA ALCAZAR DO Ot F17.210 NICOTINE DEPENDENCE, CIGARETTES, UNCOMPL 10/06/2015 BIA ALCAZAR DO Ot M79.662 PAIN IN LEFT LOWER LEG 10/06/2015 Ot 722.52 02/02/2016 Ot 722.52 02/17/2016 Ot 722.52 LUMB/ LUMBOSAC DISC DEGEN 05/22/2016 SUNDEEP HASSAN MD Ot F17.210 NICOTINE DEPENDENCE, CIGARETTES, UNCOMPL 05/22/2016 SUNDEEP HASSAN MD Ot M25.511 PAIN IN RIGHT SHOULDER 05/22/2016 Ot 722.52 LUMB/ LUMBOSAC DISC DEGEN 06/19/2016 KARIN ALCAZAR DOA Danielle Ot E87.6 HYPOKALEMIA 06/19/2016 KARIN ALCAZAR DOA K Ot J18.9 PNEUMONIA, UNSPECIFIED ORGANISM 06/19/2016 KARIN ALCAZAR DOA K Ot R07.9 CHEST PAIN, UNSPECIFIED 06/19/2016 KARIN ALCAZAR DOA K Ot R74.8 ABNORMAL LEVELS OF OTHER SERUM ENZYMES 06/19/2016 Ot 722.52 LUMB/ LUMBOSAC DISC DEGEN 06/21/2016 INGEKARIN Izquierdo DOA K Ot E87.6 HYPOKALEMIA 06/21/2016 INGE ZAVALETA BIA K Ot J18.9 PNEUMONIA, UNSPECIFIED ORGANISM 06/21/2016 INGE DO BIA K Ot R07.9 CHEST PAIN, UNSPECIFIED 06/21/2016 INGEKARIN Izquierdo DOA K Ot R74.8 ABNORMAL LEVELS OF OTHER SERUM ENZYMES 06/14/2017 JOHN PAUL TAVERAS, SAULO Prieto Ot I10 ESSENTIAL (PRIMARY) HYPERTENSION 06/14/2017 JOHN PAUL TAVERAS, SAULO Prieto Ot S30.812A ABRASION OF PENIS, INITIAL ENCOUNTER 06/14/2017 JOHN PAUL TAVERAS, SAULO Prieto Ot X58.XXXA EXPOSURE TO OTHER SPECIFIED FACTORS, INI 06/14/2017 JOHN PAUL TAVERAS, SAULO Prieto Ot Z87.81 PERSONAL HISTORY OF (HEALED) TRAUMATIC F 08/18/2017 BRODY MENDOZA APRN Ot F17.210 NICOTINE DEPENDENCE, CIGARETTES, UNCOMPL 08/18/2017 BRODY MENDOZA APRN Ot F17.290 NICOTINE DEPENDENCE, OTHER TOBACCO PRODU 08/18/2017 BRODY MENDOZA APRN Ot I10 ESSENTIAL (PRIMARY) HYPERTENSION 08/18/2017 BRODY MENDOZA APRN Ot M54.2 CERVICALGIA 08/18/2017 BRODY MENDOZA APRN Ot Z87.81 PERSONAL HISTORY OF (HEALED) TRAUMATIC F 08/20/2017 BRODY MENDOZA APRN Ot F17.210 NICOTINE DEPENDENCE, CIGARETTES, UNCOMPL 08/20/2017 BRODY MENDOZA APRN Ot F17.290 NICOTINE DEPENDENCE, OTHER TOBACCO PRODU 08/20/2017 BRODY MENDOZA APRN Ot I10 ESSENTIAL (PRIMARY) HYPERTENSION 08/20/2017 BRODY MENDOZA APRN Ot M54.2 CERVICALGIA 08/20/2017 BRODY MENDOZA APRN Ot Z87.81 PERSONAL HISTORY OF (HEALED) TRAUMATIC F 08/27/2017 Ot 722.52 LUMB/ LUMBOSAC DISC DEGEN 12/19/2017 Ot 722.52 LUMB/ LUMBOSAC DISC DEGEN Procedures There is no data. Results Test Result Range Blood CBC with ordered manual differential panel - 06/19/16 19:40 Blood leukocytes automated count (number/volume) 8.6 10*3/uL 4.3-11.0 Blood erythrocytes automated count (number/volume) 4.05 10*6/uL 4.35-5.85 Venous blood hemoglobin measurement (mass/volume) 12.8 g/dL 13.3-17.7 Blood hematocrit (volume fraction) 37 % 40-54 Automated erythrocyte mean corpuscular volume 91 [foz_us] 80-99 Automated erythrocyte mean corpuscular hemoglobin (mass per erythrocyte) 32 pg 25-34 Automated erythrocyte mean corpuscular hemoglobin concentration measurement ( mass/volume) 35 g/dL 32-36 Automated erythrocyte distribution width ratio 12.8 % 10.0-14.5 Automated blood platelet count (count/volume) 218 10*3/uL 130-400 Automated blood platelet mean volume measurement 10.1 [foz_us] 7.4-10.4 Automated blood neutrophils/100 leukocytes 60 % 42-75 Automated blood lymphocytes/100 leukocytes 28 % 12-44 Blood monocytes/100 leukocytes 2 % NRG Automated blood eosinophils/100 leukocytes 2 % 0-10 Automated blood basophils/100 leukocytes 1 % 0-10 Blood neutrophils automated count (number/volume) 5.2 10*3 1.8-7.8 Blood lymphocytes automated count (number/volume) 2.4 10*3 1.0-4.0 Blood monocytes automated count (number/volume) 0.8 10*3 0.0-1.0 Automated eosinophil count 0.2 10*3/uL 0.0-0.3 Automated blood basophil count (count/volume) 0.0 10*3/uL 0.0-0.1 Manual blood segmented neutrophils/100 leukocytes 56 % NRG Blood band neutrophils/100 leukocytes 1 % NRG Manual blood lymphocytes/100 leukocytes 39 % NRG Manual eosinophils/100 leukocytes in nose 2 % NRG Manual blood basophils/100 leukocytes 0 % NRG Blood erythrocyte morphology finding identification NORMAL NRG Serum or plasma lithium measurement (moles/volume) - 06/19/16 19:40 BNP level 93.7 pg/mL <100.0 Comprehensive metabolic panel - 06/19/16 19:40 Serum or plasma sodium measurement (moles/volume) 134 mmol/L 135-145 Serum or plasma potassium measurement (moles/volume) 3.1 mmol/L 3.6-5.0 Serum or plasma chloride measurement (moles/volume) 98 mmol/L 98-107 Carbon dioxide 24 mmol/L 21-32 Serum or plasma anion gap determination (moles/volume) 12 mmol/L 5-14 Serum or plasma urea nitrogen measurement (mass/volume) 14 mg/dL 7-18 Serum or plasma creatinine measurement (mass/volume) 0.94 mg/dL 0.60-1.30 Serum or plasma urea nitrogen/creatinine mass ratio 15 NRG Serum or plasma creatinine measurement with calculation of estimated glomerular filtration rate > NRG Serum or plasma glucose measurement (mass/volume) 123 mg/dL 70-105 Serum or plasma calcium measurement (mass/volume) 8.3 mg/dL 8.5-10.1 Serum or plasma total bilirubin measurement (mass/volume) 0.9 mg/dL 0.1-1.0 Serum or plasma alkaline phosphatase measurement (enzymatic activity/volume) 92 U/L 40-136 Serum or plasma aspartate aminotransferase measurement (enzymatic activity/ volume) 81 U/L 5-34 Serum or plasma alanine aminotransferase measurement (enzymatic activity/volume ) 69 U/L 0-55 Serum or plasma protein measurement (mass/volume) 6.6 g/dL 6.4-8.2 Serum or plasma albumin measurement (mass/volume) 3.9 g/dL 3.2-4.5 Magnesium - 06/19/16 19:40 Magnesium 2.0 mg/dL 1.8-2.4 Serum or plasma creatine kinase measurement (enzymatic activity/volume) - 06/19 19:40 Serum or plasma creatine kinase measurement (enzymatic activity/volume) 1497 U/L 30-200 Serum or plasma creatine kinase MB measurement (enzymatic activity/volume) - 19:40 Serum or plasma creatine kinase MB measurement (enzymatic activity/volume) 5.8 ng/mL <6.6 Serum or plasma troponin i.cardiac measurement (mass/volume) - 06/19/16 19:40 Serum or plasma troponin i.cardiac measurement (mass/volume) < ng/ mL <0.30 Serum or plasma ethanol measurement (mass/volume) - 06/19/16 19:45 Serum or plasma ethanol measurement (mass/volume) < mg/dL <10 Acute hepatitis panel - 06/19/16 19:45 Confirmatory quantitative serum or plasma hepatitis B virus surface antigen measurement Non-Reactive Non-Reactive Hepatitis A virus IgM antibody assay Non-Reactive Non- Reactive Hepatitis B virus core IgM antibody assay Non-Reactive Non-Reactive Serum hepatitis C virus antibody detection Non-Reactive Non-Reactive Blood lactic acid measurement (moles/volume) - 06/19/16 20:00 Blood lactic acid measurement (moles/volume) 1.0 mmol/L 0.5-2.0 Bacterial blood culture - 06/19/16 20:00 Bacterial blood culture NG NRG Bacterial blood culture - 06/19/16 20:29 Bacterial blood culture NG NRG Complete urinalysis with reflex to culture - 06/19/16 21:00 Urine color determination YELLOW NRG Urine clarity determination CLEAR NRG Urine pH measurement by test strip 6.5 5-9 Specific gravity of urine by test strip 1.010 1.016- 1.022 Urine protein assay by test strip, semi-quantitative 2+ NEGATIVE Urine glucose detection by automated test strip NEGATIVE NEGATIVE Erythrocytes detection in urine sediment by light microscopy 1+ NEGATIVE Urine ketones detection by automated test strip NEGATIVE NEGATIVE Urine nitrite detection by test strip NEGATIVE NEGATIVE Urine total bilirubin detection by test strip NEGATIVE NEGATIVE Urine urobilinogen measurement by automated test strip (mass/volume) 4 mg/dL NORMAL Urine leukocyte esterase detection by dipstick 1+ NEGATIVE Automated urine sediment erythrocyte count by microscopy (number/high power field) [HPF] NRG Automated urine sediment leukocyte count by microscopy (number/high power field ) [HPF] NRG Bacteria detection in urine sediment by light microscopy NEGATIVE NRG Crystals detection in urine sediment by light microscopy NONE NRG Casts detection in urine sediment by light microscopy NONE NRG Mucus detection in urine sediment by light microscopy NEGATIVE NRG Complete urinalysis with reflex to culture NO NRG Urine drug screening test - 06/19/16 21:00 Urine phencyclidine detection by screening method NEGATIVE NEGATIVE Urine benzodiazepines detection by screening method POSITIVE NEGATIVE Urine cocaine detection NEGATIVE NEGATIVE Urine amphetamines detection by screening method NEGATIVE NEGATIVE Urine methamphetamine detection by screening method NEGATIVE NEGATIVE Urine cannabinoids detection by screening method POSITIVE NEGATIVE Urine opiates detection by screening method POSITIVE NEGATIVE Urine barbiturates detection NEGATIVE NEGATIVE Screening urine tricyclic antidepressants detection NEGATIVE NEGATIVE Gram stain microscopy - 06/14/17 16:00 GRAM STAIN RESULT NO WBC'S OR BACTERIA OBSERVED NRG Bacteria identification in wound by culture - 06/14/17 16:00 Bacteria identification in wound by culture [id number] NRG FREE TEXT EXTERNAL MORE THAN ONE COLONY TYPE NRG QUANTITY OF GROWTH Moderate Growth NRG FREE TEXT ENTRY 2 PLUS, MIXED GRAM POSITIVES, ID TO FOLLOW NRG Complete blood count (CBC) with automated white blood cell (WBC) differential - 01/30/18 14:33 Blood leukocytes automated count (number/volume) 7.0 10*3/uL 4.3-11.0 Blood erythrocytes automated count (number/volume) 4.83 10*6/uL 4.35-5.85 Venous blood hemoglobin measurement (mass/volume) 15.6 g/dL 13.3-17.7 Blood hematocrit (volume fraction) 45 % 40-54 Automated erythrocyte mean corpuscular volume 94 [foz_us] 80-99 Automated erythrocyte mean corpuscular hemoglobin (mass per erythrocyte) 32 pg 25-34 Automated erythrocyte mean corpuscular hemoglobin concentration measurement ( mass/volume) 34 g/dL 32-36 Automated erythrocyte distribution width ratio 13.3 % 10.0-14.5 Automated blood platelet count (count/volume) 183 10*3/uL 130-400 Automated blood platelet mean volume measurement 10.1 [foz_us] 7.4-10.4 Automated blood neutrophils/100 leukocytes 52 % 42-75 Automated blood lymphocytes/100 leukocytes 38 % 12-44 Blood monocytes/100 leukocytes 6 % 0-12 Automated blood eosinophils/100 leukocytes 3 % 0-10 Automated blood basophils/100 leukocytes 0 % 0-10 Blood neutrophils automated count (number/volume) 3.7 10*3 1.8-7.8 Blood lymphocytes automated count (number/volume) 2.6 10*3 1.0-4.0 Blood monocytes automated count (number/volume) 0.5 10*3 0.0-1.0 Automated eosinophil count 0.2 10*3/uL 0.0-0.3 Automated blood basophil count (count/volume) 0.0 10*3/uL 0.0-0.1 PT panel in platelet poor plasma by coagulation assay - 01/30/18 14:33 Prothrombin time (PT) in platelet poor plasma by coagulation assay 12.8 s 12.2-14.7 INR in platelet poor plasma or blood by coagulation assay 1.0 0.8-1.4 Activated partial thromboplastin time (aPTT) in platelet poor plasma bycoagulation assay - 01/30/18 14:33 Activated partial thromboplastin time (aPTT) in platelet poor plasma bycoagulation assay 30 s 24-35 Fibrin D-dimer FEU measurement in platelet poor plasma (mass/volume) - 14:33 Fibrin D-dimer FEU measurement in platelet poor plasma (mass/volume) 0.94 ug/mL 0.00-0.49 Comprehensive metabolic panel - 01/30/18 14:33 Serum or plasma sodium measurement (moles/volume) 140 mmol/L 135-145 Serum or plasma potassium measurement (moles/volume) 4.2 mmol/L 3.6-5.0 Serum or plasma chloride measurement (moles/volume) 104 mmol/L 98-107 Carbon dioxide 24 mmol/L 21-32 Serum or plasma anion gap determination (moles/volume) 12 mmol/L 5-14 Serum or plasma urea nitrogen measurement (mass/volume) 13 mg/dL 7-18 Serum or plasma creatinine measurement (mass/volume) 0.95 mg/dL 0.60-1.30 Serum or plasma urea nitrogen/creatinine mass ratio 14 NRG Serum or plasma creatinine measurement with calculation of estimated glomerular filtration rate > NRG Serum or plasma glucose measurement (mass/volume) 175 mg/dL 70-105 Serum or plasma calcium measurement (mass/volume) 9.1 mg/dL 8.5-10.1 Serum or plasma total bilirubin measurement (mass/volume) 0.4 mg/dL 0.1-1.0 Serum or plasma alkaline phosphatase measurement (enzymatic activity/volume) 94 U/L 40-136 Serum or plasma aspartate aminotransferase measurement (enzymatic activity/ volume) 29 U/L 5-34 Serum or plasma alanine aminotransferase measurement (enzymatic activity/volume ) 41 U/L 0-55 Serum or plasma protein measurement (mass/volume) 6.8 g/dL 6.4-8.2 Serum or plasma albumin measurement (mass/volume) 4.1 g/dL 3.2-4.5 Magnesium - 01/30/18 14:33 Magnesium 2.2 mg/dL 1.8-2.4 Serum or plasma troponin i.cardiac measurement (mass/volume) - 01/30/18 14:33 Serum or plasma troponin i.cardiac measurement (mass/volume) < ng/ mL <0.30 Myoglobin, serum - 01/30/18 14:33 Myoglobin, serum 52.9 ng/mL 10.0-92.0 Serum or plasma lithium measurement (moles/volume) - 01/30/18 14:33 BNP level 236.7 pg/mL <100.0 Streptococcus pyogenes antigen detection - 01/30/18 14:56 Streptococcus pyogenes antigen detection NEGATIVE NEGATIVE Influenza virus A and B antigen detection - 01/30/18 14:56 FLU RESULT NEGATIVE FOR INFLUENZA A AND B ANTIGENS BY [facility] Urine drug screening test - 01/30/18 15:10 Urine phencyclidine detection by screening method NEGATIVE NEGATIVE Urine benzodiazepines detection by screening method POSITIVE NEGATIVE Urine cocaine detection NEGATIVE NEGATIVE Urine amphetamines detection by screening method NEGATIVE NEGATIVE Urine methamphetamine detection by screening method POSITIVE NEGATIVE Urine cannabinoids detection by screening method NEGATIVE NEGATIVE Urine opiates detection by screening method NEGATIVE NEGATIVE Urine barbiturates detection NEGATIVE NEGATIVE Screening urine tricyclic antidepressants detection NEGATIVE NEGATIVE Urine methadone detection by screening method NEGATIVE NEGATIVE Urine oxycodone detection POSITIVE NEGATIVE Urine propoxyphene detection NEGATIVE NEGATIVE Urine drug screening test - 01/30/18 20:57 Urine phencyclidine detection by screening method NEGATIVE NEGATIVE Urine benzodiazepines detection by screening method POSITIVE NEGATIVE Urine cocaine detection NEGATIVE NEGATIVE Urine amphetamines detection by screening method NEGATIVE NEGATIVE Urine methamphetamine detection by screening method POSITIVE NEGATIVE Urine cannabinoids detection by screening method POSITIVE NEGATIVE Urine opiates detection by screening method NEGATIVE NEGATIVE Urine barbiturates detection NEGATIVE NEGATIVE Screening urine tricyclic antidepressants detection NEGATIVE NEGATIVE Urine methadone detection by screening method NEGATIVE NEGATIVE Urine oxycodone detection POSITIVE NEGATIVE Urine propoxyphene detection NEGATIVE NEGATIVE Complete blood count (CBC) with automated white blood cell (WBC) differential - 01/31/18 05:22 Blood leukocytes automated count (number/volume) 11.8 10*3/uL 4.3-11.0 Blood erythrocytes automated count (number/volume) 4.75 10*6/uL 4.35-5.85 Venous blood hemoglobin measurement (mass/volume) 15.2 g/dL 13.3-17.7 Blood hematocrit (volume fraction) 44 % 40-54 Automated erythrocyte mean corpuscular volume 93 [foz_us] 80-99 Automated erythrocyte mean corpuscular hemoglobin (mass per erythrocyte) 32 pg 25-34 Automated erythrocyte mean corpuscular hemoglobin concentration measurement ( mass/volume) 35 g/dL 32-36 Automated erythrocyte distribution width ratio 13.2 % 10.0-14.5 Automated blood platelet count (count/volume) 192 10*3/uL 130-400 Automated blood platelet mean volume measurement 10.0 [foz_us] 7.4-10.4 Automated blood neutrophils/100 leukocytes 89 % 42-75 Automated blood lymphocytes/100 leukocytes 10 % 12-44 Blood monocytes/100 leukocytes 1 % 0-12 Automated blood eosinophils/100 leukocytes 0 % 0-10 Automated blood basophils/100 leukocytes 0 % 0-10 Blood neutrophils automated count (number/volume) 10.5 10*3 1.8-7.8 Blood lymphocytes automated count (number/volume) 1.2 10*3 1.0-4.0 Blood monocytes automated count (number/volume) 0.1 10*3 0.0-1.0 Automated eosinophil count 0.0 10*3/uL 0.0-0.3 Automated blood basophil count (count/volume) 0.0 10*3/uL 0.0-0.1 Magnesium - 01/31/18 05:22 Magnesium 2.1 mg/dL 1.8-2.4 Serum or plasma troponin i.cardiac measurement (mass/volume) - 01/31/18 05:22 Serum or plasma troponin i.cardiac measurement (mass/volume) < ng/ mL <0.30 Lipid 1996 panel - 01/31/18 05:22 Serum or plasma triglyceride measurement (mass/volume) 123 mg/dL <150 Serum or plasma cholesterol measurement (mass/volume) 177 mg/dL < 200 Serum or plasma cholesterol in HDL measurement (mass/volume) 36 mg/ dL 40-60 Cholesterol in LDL [mass/volume] in serum or plasma by direct assay 92 mg/dL 1-129 Serum or plasma cholesterol in VLDL measurement (mass/volume) 25 mg/ dL 5-40 THYROID STIMULATING HORMONE - 01/31/18 05:22 THYROID STIMULATING HORMONE 0.39 u[iU]/mL 0.35-4.94 Encounters ACCT No. Visit Date/Time Discharge Status Pt. Type Provider Facility Loc./Unit Complaint [id number] 08/18/2017 15:31:00 08/18/2017 16:25:00 DIS Emergency BRODY MENDOZA APRN [facility] ER NECK/SPINE PAIN [id number] 06/14/2017 15:11:00 06/14/2017 17:20:00 DIS Emergency JOHN PAUL TAVERAS, SAULO Prieto [facility] ER SPIDER BITE [id number] 06/19/2016 19:31:00 06/19/2016 21:47:00 DIS Emergency BIA ALCAZAR DO [facility] ER CHEST TIGHTNESS [id number] 05/22/2016 06:23:00 05/22/2016 07:15:00 DIS Emergency SUNDEEP HASSAN MD [facility] ER R ARM/SHOULDER PAIN [id number] 10/06/2015 05:25:00 10/06/2015 06:09:00 DIS Emergency BIA ALCAZAR DO [facility] ER FALL, LT LEG PAIN [id number] 07/29/2015 15:51:00 07/29/2015 16:48:00 DIS Emergency BRODY MENDOZA APRN [facility] ER L LEG PAIN [id number] 01/10/2015 19:11:00 01/10/2015 22:07:00 DIS Emergency SUNDEEP HASSAN MD [facility] ER LOWER EXTREMITY PAIN [id number] 10/27/2014 23:16:00 10/28/2014 00:02:00 DIS Emergency SUNDEEP HASSAN MD [facility] ER FEVER,CHILLS [id number] 06/06/2014 18:47:00 06/06/2014 19:20:00 DIS Emergency BRODY MENDOZA APRN [facility] ER POSS SPIDER BITE,FEVER, CHILLS [id number] 05/02/2013 16:03:00 05/02/2013 17:22:00 DIS Emergency ROSIO BAGLEY MD [facility] ER CP [id number] 01/30/2018 16:14:00 ACT Inpatient PRINCESS TAVERAS, BRADLY P[place] [facility] 4TH CHEST PAIN, REACTIVE AIRWAY DISEASE [id number] 12/19/2017 10:17:00 Document Registration [id number] 12/19/2017 10:17:00 Document Registration [id number] 12/19/2017 10:17:00 Document Registration [id number] 12/19/2017 10:17:00 Document Registration [id number] 12/19/2017 10:17:00 Document Registration [id number] 12/19/2017 10:17:00 Document Registration [id number] 12/19/2017 10:17:00 Document Registration [id number] 12/19/2017 10:17:00 Document Registration [id number] 12/19/2017 10:17:00 Document Registration [id number] 12/19/2017 10:17:00 Document Registration [id number] 12/19/2017 10:17:00 Document Registration [id number] 12/19/2017 10:17:00 Document Registration [id number] 12/19/2017 10:17:00 Document Registration [id number] 12/19/2017 10:17:00 Document Registration [id number] 03/11/2012 15:04:00 Document Registration [id number] 08/11/2010 20:21:00 Document Registration [id number] 04/30/2010 17:01:00 Document Registration [id number] 01/19/2010 18:21:00 Document Registration [id number] 01/02/2010 13:06:00 Document Registration [id number] 11/02/2017 11:35:46 11/02/2017 23:59:59 [id number] 07/29/2015 15:52:17 ACT Document Registration
[2018-01-31 12:00] VITALS: BP 147/79
[2018-01-31 16:34] VITALS: BP 135/61
[2018-01-31 19:38] VITALS: BP 134/67
[2018-01-31] MEDS: RT-ADVAIR HFA 115/21 MCG PER PUFF IH SCH (20:08)
[2018-02-01 00:03] VITALS: BP 146/81
[2018-02-01 03:45] VITALS: BP 141/82
[2018-02-01] MEDS: methylPREDNISolone 125 MG (Solu-MEDROL) VIAL IV SCH ×2 (05:16→14:09)
[2018-02-01] MEDS: CATHETER FLUSH 10 ML SYR IV SCH ×2 (05:17→12:38)
[2018-02-01] MEDS: DIAZEPAM 5 MG (VALIUM) TABLET PO PRN (06:01)
[2018-02-01] MEDS: oxyCODONE/APAP 5/325MG (PERCOCET 5) TABLET PO PRN ×2 (06:02→14:13)
[2018-02-01 07:21] LABS: ALANINE AMINOTRANSFERASE 42 U/L (0-55); ALBUMIN 4.3 GM/DL (3.2-4.5); ALKALINE PHOSPHATASE 79 U/L (40-136); BILIRUBIN,TOTAL 0.4 MG/DL (0.1-1.0); BUN/CREATININE RATIO 19; CALCIUM 8.9 MG/DL (8.5-10.1); CARBON DIOXIDE 21 MMOL/L (21-32); CHLORIDE 111 MMOL/L (98-107); CREATININE SERUM 0.77 MG/DL (0.60-1.30); GFR ESTIMATED > 60; GLUCOSE 177 MG/DL (70-105); MAGNESIUM 2.6 MG/DL (1.8-2.4); POTASSIUM 4.1 MMOL/L (3.6-5.0); SODIUM 142 MMOL/L (135-145); TOTAL PROTEIN 6.9 GM/DL (6.4-8.2)
[2018-02-01] MEDS ORDERED: REGADENOSON 0.4 MG/5 ML SYR (LEXISCAN) IV ONE ×2 (08:32→09:15)
[2018-02-01] MEDS ORDERED: GABAPENTIN 600 MG (NEURONTIN) TAB PO PRN (08:45)
[2018-02-01] MEDS ORDERED: LOSARTAN 100 MG (COZAAR) TABLET PO SCH (09:00)
[2018-02-01] MEDS ORDERED: AZITHROMYCIN INJECTION 250 MG in NS (IVPB) 250 ML IV SCH (09:00)
[2018-02-01] MEDS ORDERED: cefTRIAXone INJECTION 1,000 MG in NS (IVPB) 100 ML IV SCH (09:00)
[2018-02-01] MEDS ORDERED: LOSARTAN 50 MG (COZAAR) TAB PO SCH (09:00)
[2018-02-01 09:09] VITALS: BP 159/72
[2018-02-01 09:12] VITALS: BP 136/86
--- NOTE | 2018-02-01 09:50 | Progress Note-Cardiology ---
Cardiology SOAP Progress Note Subjective: Feels breathing is better this morning. No c/o CP or palpitations. Occ lose cough Objective: I&O/Vital Signs Weight (Pounds): 249 Weight (Ounces): 8.0 Weight (Calculated Kilograms): 113.457267 Constitutional: AAO x 3, well-developed, well-nourished Respiratory: No accessory muscle use, No respiratory distress; chest expansion is symmetric, chest is bilaterally symmetric, rhonchi (scattered), other ( prolonged exp phase) Cardiovascular: regular rate-rhythm; No JVD; S1 and S2 Gastrointestional: soft, round, audible bowel sounds Extremities: no lower extremity edema bilateral Neurologic/Psychiatric: grossly intact, power is 5/5 both on sides Skin: No rash, No ulcerations Results/Procedures: Labs Microbiology 01/30/18 Throat Culture - Final, Complete No Beta Strep isolated A/P: Assessment: Chest pain likely r/t acute asthmatic bronchitis, but cannot exclude a cardiac source Freq PVC's likely r/t acute asthmatic bronchitis and methamphetamine use ( tested positive, but he feels it is false positive) Echocardiogram of 01-31-18 showed LVEF 65-70%. Grade 1 diastolic dysfunction. Mild MR. PASP 50 mmHg. H/O extensive left leg surgery d/t a fall from a horse in 2014 (reports 5 surgeries) Prob COPD HTN Pulmonary nodules per CT of the chest on 01-30-18. Mildly prominent bilateral hilar and mediastinal adenopathy. Etiology and clinical significance is indeterminate based on this exam alone. Both lymphoproliferative and lympho- invasive processes such as sarcoid or metastatic disease should be considered - management per medical services Tobaccoism Hyperglycemia, suggestive of DM II Obesity with BMI approx 30 Symptoms suggestive of sleep apnea Positive drug screen for methamphetamines on 01-30-18 and marijuana use - advised immediate and complete cessation TSH WNL on lab of 01-31-18 Plan: * Symptoms appear primarily pulmonary, but does have cor risk factors * Continue telemetry * Monitor labs * Advised to quit smoking * Advised sleep studies as an out pt * Echo to eval for any cardiomyopathy * MPI today - pending * CT results show pulmonary nodules and adenopathy which is being followed by medical services - oncology has been consulted * TSH 0.39 on lab of 01-31-18 Physician Assessment Physician Assessment Please refer to my separately written note of the same date Clinical Quality Measures AMI/AHF: ASA po Prior to arrival: TRELL Johnson [employer] Feb 01, 2018 09:49 BELINDA PETTY MD FACP FAC CCDS Feb 05, 2018 17:56
--- NOTE | 2018-02-01 10:01 | Discharge Summary ---
Diagnosis/Chief Complaint Date of Admission Jan 31, 2018 at 09:39 Date of Discharge Discharge Date: Feb 01, 2018 Discharge Time: 10:00 Admission Diagnosis Admission Diagnosis chest pain respiratory distress dyspnea cough tobacco abuse Discharge Diagnosis chest pain respiratory distress dyspnea cough tobacco abuse Reason Hospital Visit Pt reports that he has been having increased pain, increased shortness of breath for a few days prior to admission to the hospital. Discharge Summary Discharge Physical Examination Allergies: Coded Allergies: NKANo Known Allergies (Unverified Allergy, Mild, 09/27/09) Vitals & I&Os General Appearance: Alert, Oriented X3, Cooperative HEENT: Atraumatic, PERRLA Respiratory: Clear to Auscultation Cardiovascular: Regular Rate Abdominal: Normal Bowel Sounds, Soft Skin: No Rashes, No Breakdown Psych/Mental Status: Mental Status NL, Mood NL Hospital Course chest pain respiratory distress dyspnea cough tobacco abuse chest pain -stress testing negative - symptoms resolved. respiratory distress - improved with breathing treatments - started steroids - symptoms improved - pt to continue with current management. dyspnea and cough - improved - monitor tobacco abuse - discussed with patient. Pending Labs Radiology Reviewed NAME: WALE ANTUNEZ [facility] REC#: [id number] PHYSICIAN: MARILIA CLARK RISK MANAGEMENT DIRECTOR ADMIT DATE: 01/31/18 : 1970 MYOCARDIAL SPECT MULTI DATE OF SERVICE: 02/01/2018 RESTING AND POST REGADENOSON TECHNETIUM-99M TETROFOSMIN SPECT CT IMAGING ORDERING PHYSICIAN: Marilia Clark APRN PRIMARY CARE PHYSICIAN: Bradly Ryan MD CLINICAL DIAGNOSIS: Chest discomfort, shortness of breath. Baseline images were carried out after injection of 10.72 mCi technetium-99m tetrofosmin. This was followed by 0.4 mg regadenoson and 27.4 mCi technetium-99m tetrofosmin for stress imaging. The electrocardiogram showed sinus rhythm with isolated premature ventricular contractions. There was no ventricular or supraventricular tachycardia. The patient noted some shortness of breath following regadenoson infusion, which resolved in a few minutes. There were no distinct ischemic electrocardiographic changes. The image acquisition was difficult because of considerable patient motion, especially during the stress image acquisition. This makes the study difficult to interpret. The tracer uptake is a patchy. There is no distinct ischemia pattern. Gated images show no distinct regional wall motion abnormality. The global left ventricular systolic function appears well preserved. Left ventricular ejection fraction is 57%. There does appear to be cardiomegaly and left ventricular end-diastolic volume 175 mL. TID is absent (1.18.) CONCLUSIONS: 1. Technically difficult study due to significant patient motion during image acquisition. 2. Moderate cardiomegaly. 3. No distinct evidence of significant myocardial ischemia on this study, but the study is difficult. 4. Left ventricular ejection fraction is calculated to be 57%. Job ID: [id number] DocumentID: [id number] Dictated Date: 02/01/2018 15:05:02 Java Lead Developer Date: 02/01/2018 15:52:35 Dictated By: BELINDA PETTY MD, MA, FACP, FACC, [id number] <Dictated by BELINDA PETTY MD, TYRONE, FACP, FACC, FSCAI, CCDS> <Electronically signed by BELINDA PETTY MD, TYRONE, FACP, FACC, FSCAI, CCDS> 02/03/18 1234 Discharge Condition at discharge improved Instructions to patient/family Please see electronic discharge instructions given to patient. Discharge Medications Reviewed and agree with Discharge Medication list on patient's Discharge Instruction sheet Clinical Quality Measures AMI/AHF: ASA po Prior to arrival: No DVT/VTE Risk/Contraindication: Risk Factor Score Per Nursin RFS Level Per Nursing on Admit: 4+=Very High BRADLY RYAN MD Feb 01, 2018 10:01
[2018-02-01] MEDS ORDERED: PRD20T PO (10:05)
[2018-02-01] MEDS ORDERED: ASPI-999 PO (10:05)
[2018-02-01] MEDS ORDERED: FLUT12AE4 IH (10:05)
[2018-02-01] MEDS ORDERED: AZIT250T12 PO (10:05)
[2018-02-01] MEDS ORDERED: CEPH-507 PO (10:05)
--- NOTE | 2018-02-01 10:12 | Discharge Inst-Simple/Standard ---
Discharge Inst-Standard Discharge Medications New, Converted or Re-Newed RX: Transmitted to Pharmacy Patient Instructions/Follow Up Plan of Care/Instructions/FU: appt with emmanuel bennett in [address] orourke in [address] jimenezs offce in 1 week Activity as Tolerated: Yes Discharge Diet: Low Fat/Low Cholesterol BRADLY SÁNCHEZ MD Feb 01, 2018 10:12
[2018-02-01] MEDS: RT-ALBUTEROL/IPRATROPIUM 3 ML (DUONEB) VIAL INH SCH (10:56)
[2018-02-01] MEDS: RT-ADVAIR HFA 115/21 MCG PER PUFF IH SCH (10:56)
[2018-02-01] MEDS: ASPIRIN 81 MG CHEW (CHILDREN'S ASA) PO SCH (11:00)
[2018-02-01 12:00] VITALS: BP 117/56
--- NOTE | 2018-02-01 15:30 | Progress Note-Cardiology ---
Cardiology SOAP Progress Note Subjective: Feels much better compared to time of admission Denies cp or palp or syncope Shortness of breath is much improved Objective: I&O/Vital Signs 02/01/18 02/01/18 02/01/18 02/01/18 03:45 07:00 09:09 09:12 Temp 98.3 Pulse 82 74 88 99 Resp 18 B/P (MAP) 141/82 (101) 159/72 (101) 136/86 (103) Pulse Ox 95 98 98 O2 Delivery Room Air 02/01/18 02/01/18 02/01/18 02/01/18 10:15 10:56 12:00 13:00 Temp 98.0 Pulse 143 94 B/P (MAP) 117/56 (76) Pulse Ox 96 95 O2 Delivery Room Air Room Air Room Air 02/01/18 00:00 Intake Total 2260 ml Output Total 4 ml Balance 2256 ml Weight (Pounds): 249 Weight (Ounces): 8.0 Weight (Calculated Kilograms): 113.539949 Constitutional: AAO x 3, well-developed, well-nourished Respiratory: No accessory muscle use, No respiratory distress; chest expansion is symmetric, chest is bilaterally symmetric, rhonchi (scattered), other ( prolonged exp phase) Cardiovascular: regular rate-rhythm; No JVD; S1 and S2 Gastrointestional: soft, round, audible bowel sounds Extremities: no lower extremity edema bilateral Neurologic/Psychiatric: grossly intact, power is 5/5 both on sides Skin: No rash, No ulcerations Results/Procedures: Labs Laboratory Tests 02/01/18 06:27: Sodium Level 142, Potassium Level 4.1, Chloride Level 111H, Carbon Dioxide Level 21, Anion Gap 10, Blood Urea Nitrogen 15, Creatinine 0.77, Estimat Glomerular Filtration Rate > 60, BUN/Creatinine Ratio 19, Glucose Level 177H, Calcium Level 8.9, Magnesium Level 2.6H, Total Bilirubin 0.4, Aspartate Amino Transf (AST/SGOT) 19, Alanine Aminotransferase (ALT/SGPT) 42, Alkaline Phosphatase 79, Total Protein 6.9, Albumin 4.3 Microbiology 01/30/18 Throat Culture - Final, Complete No Beta Strep isolated Laboratory Tests 01/31/18 05:22 02/01/18 06:27 A/P: Assessment: Chest pain likely r/t acute asthmatic bronchitis, no evidence of ACS Freq PVC's likely r/t acute asthmatic bronchitis and methamphetamine use ( tested positive, but he feels it is false positive) Echocardiogram of 01-31-18 showed LVEF 65-70%. Grade 1 diastolic dysfunction. Mild MR. PASP 50 mmHg MPI of 02/01/18: Difficult study due to patient motion, no distinct evidence of cor ischemia, mod cardiomegaly, LVEF 57% H/O extensive left leg surgery d/t a fall from a horse in 2014 (reports 5 surgeries) Prob COPD HTN Pulmonary nodules per CT of the chest on 01-30-18. Mildly prominent bilateral hilar and mediastinal adenopathy. Etiology and clinical significance is indeterminate based on this exam alone. Both lymphoproliferative and lympho- invasive processes such as sarcoid or metastatic disease should be considered - management per medical services Tobaccoism Hyperglycemia, suggestive of DM II Obesity with BMI approx 30 Symptoms suggestive of sleep apnea Positive drug screen for methamphetamines on 01-30-18 and marijuana use - advised immediate and complete cessation TSH WNL on lab of 01-31-18 Plan: * I discussed his card w/u with him (echo and MPI0 * Advised to quit smoking and avoid drug use * Advised sleep studies as an outpt * Outpt card f/u advised Clinical Quality Measures AMI/AHF: ASA po Prior to arrival: BELINDA Gill MD FACP FACC CCDS Feb 01, 2018 15:30
--- NOTE | 2018-02-01 15:53 | STRESS TEST ---
DATE OF SERVICE: 02/01/2018 RESTING AND POST REGADENOSON TECHNETIUM-99M TETROFOSMIN SPECT CT IMAGING ORDERING PHYSICIAN: Marilia Clark APRN PRIMARY CARE PHYSICIAN: Suni Ryan MD CLINICAL DIAGNOSIS: Chest discomfort, shortness of breath. Baseline images were carried out after injection of 10.72 mCi technetium-99m tetrofosmin. This was followed by 0.4 mg regadenoson and 27.4 mCi technetium-99m tetrofosmin for stress imaging. The electrocardiogram showed sinus rhythm with isolated premature ventricular contractions. There was no ventricular or supraventricular tachycardia. The patient noted some shortness of breath following regadenoson infusion, which resolved in a few minutes. There were no distinct ischemic electrocardiographic changes. The image acquisition was difficult because of considerable patient motion, especially during the stress image acquisition. This makes the study difficult to interpret. The tracer uptake is a patchy. There is no distinct ischemia pattern. Gated images show no distinct regional wall motion abnormality. The global left ventricular systolic function appears well preserved. Left ventricular ejection fraction is 57%. There does appear to be cardiomegaly and left ventricular end-diastolic volume 175 mL. TID is absent (1.18.) CONCLUSIONS: 1. Technically difficult study due to significant patient motion during image acquisition. 2. Moderate cardiomegaly. 3. No distinct evidence of significant myocardial ischemia on this study, but the study is difficult. 4. Left ventricular ejection fraction is calculated to be 57%. Job ID: [id number] DocumentID: [id number] Dictated Date: 02/01/2018 15:05:02 Test Tech Date: 02/01/2018 15:52:35 Dictated By: BELINDA PETTY MD, MA, FACP, FACC,
== END 2018-02-01 15:44 | disposition home or self-care (01) | DRG 203 ==
LOC: EDUNIT# 14:15 → ER 14:18 → UNDOADMOB 16:14 → 4TH 16:14 → INTOOBSV 01-31 09:39 → OBSVTOIN 01-31 09:39 → EDPENDDISTM 02-01 10:00 → UNDODISIN 02-01 15:44
PROVIDERS: ADMIT Family Medicine; ATTEND Family Medicine
DX: J45.909 Unspecified asthma, uncomplicated (principal); R07.9 Chest pain, unspecified; I49.3 Ventricular premature depolarization; I10 Essential (primary) hypertension; J44.9 Chronic obstructive pulmonary disease, unspecified; R73.9 Hyperglycemia, unspecified; F15.90 Other stimulant use, unspecified, uncomplicated; E66.9 Obesity, unspecified; F17.210 Nicotine dependence, cigarettes, uncomplicated; Z68.30 Body mass index [BMI] 30.0-30.9, adult
CPT/HCPCS: 36415; 71045; 71275; 78452; 80053; 80061; 80306; 83615; 83735; 83874; 83880; 84443; 84484; 85025; 85379; 85610; 85730; 87430; 87804; 93005; 93017; 93041; 93306; 94640; 94760; 96374; 96375; G0378

== ENCOUNTER 2018-03-29 13:24 | Outpatient (CLI) | payer MEDICARE, MEDICAID ==
[~2018-03-29 13:24] MED LIST changes: +ALKA-SELTZER PO; +ASPI-999 PO; +AZIT250T12 PO; +CEPH-507 PO; +DIAZ5TAB3 PO; +FLUT12AE4 IH; +LOSA100T28 PO; +OXYC-471 PO
== END 2018-03-29 13:36 | disposition home or self-care (01) ==
LOC: SLEEP 13:24
PROVIDERS: ATTEND Nurse Practitioner Family
DX: G47.50 Parasomnia, unspecified (principal); G47.10 Hypersomnia, unspecified; G47.9 Sleep disorder, unspecified; R06.00 Dyspnea, unspecified

== ENCOUNTER 2018-03-29 13:38 | Emergency (ER) | payer MEDICARE, MEDICAID ==
--- OUTSIDE RECORDS SUMMARY | 2018-03-29 13:42 | XMS REPORT | Clinical Summary ---
Author Author [facility] Organization [facility] Address Unknown Phone Unavailable Care Team Providers Care Block Engraver Name Role Phone KimiCholo rabago PCP Source Comments Some departments are not documenting in the electronic medical record. If you do not see the information that you expected, contact Release of Information in the Health Information Management department at [phone] for further assistance in locating additional records.[facility] Allergies Not on File Current Medications [...]
--- OUTSIDE RECORDS SUMMARY | 2018-03-29 13:43 | XMS REPORT ---
Author Author ZAIRA YANG [facility] Address [address] [place] [address] Care Team Providers Care Warehouse Incentive Selector Name Role Phone JAKE YANGO Unavailable PROBLEMS Type Condition ICD9-CM Code OJJ08-AS Code Onset Dates Condition Status SNOMED Code Problem Chronic pain of lower extremity 729.5 Active 96856069 Problem Neuropathy, lower extremity 355.8 Active 138695140 Problem Irregular cardiac rhythm 427.9 Active 929269811 ALLERGIES No Known Allergies ENCOUNTERS Encounter Location Date Diagnosis [address] [address] [id number] [id number] May, Dental examination Z01.20 [facility] [address] [id number] [id number] Jan, [facility] [address] [facility] [id number] [id number] Nov, [facility] [address] [id number] [id number] Nov, [address] [id number] [id number] Oct, Chronic post-operative pain G89.28 and High risk medication use Z79.899 [facility] [address] [id number] [id number] Sep, [address] [id number][place] [id number] Aug, Chronic post-operative pain G89.28 and High risk medication use Z79.899 [facility] [address] [facility] [address] [facility] [id number] [id number] Jun, [facility] [address] [id number], [place] [address] May, [facility] [address] [id number], [place] [address] Apr, Irregular cardiac rhythm 427.9 ; Neuropathy, lower extremity 355.8 and Chronic pain of lower extremity 729.5 [facility] [address] [id number], [place] [address] Aug, [facility] [address] [id number], [place] [address] Aug, [facility] [address] [facility] [id number], [place] [address] Sep, IMMUNIZATIONS No Known Immunizations SOCIAL HISTORY Never Assessed REASON FOR VISIT poss infection PLAN OF CARE Activity Details Follow Up prn Reason:TE's -1 hour VITAL SIGNS Blood pressure systolic 129 mmHg 2017-06-19 Blood pressure diastolic 67 mmHg 2017-06-19 MEDICATIONS Medication Instructions Dosage Frequency Start Date End Date Duration Status Amoxicillin 500 MG Orally every 8 hrs 2 tabs stat then 1 TID 8h 7 days Active Ibuprofen 800 MG Orally Three times a day 1 tablet as needed for pain 8h Aug, Active RESULTS No Results PROCEDURES Procedure Date Ordered Result Body Site LTD ORAL EVALUATION - PROBLEM FOCUS Jun 19, 2017 INTRAORL-PERIAPICAL 1 FILM [id number] Jun 19, 2017 INTRAORL-PERIAPICAL EA ADD FILM Jun 19, 2017 INSTRUCTIONS MEDICATIONS ADMINISTERED No Known Medications MEDICAL (GENERAL) HISTORY Type Description Date Medical History hernia disc Medical History horse accident january 10 2015 Medical History bradycardia Medical History irregular heartbeat Medical History plates and screws in left leg Medical History high blood pressure Medical History arthritis Surgical History left leg plates and screws 01/11/15 and 01/12/15 Surgical History left leg plates and screws 01/22/15 Surgical History right achilles tendon surgery --age 19 Hospitalization History 15 days at [facility] after horse accident 01/10/15 Hospitalization History [facility]- right achilles tenden surgery 1989
[2018-03-29 13:56] VITALS: BP 0/0
== END 2018-03-29 13:49 | disposition left against medical advice (07) ==
LOC: EDUNIT# 13:38 → ER 13:39
DX: M79.671 Pain in right foot (principal)
CPT/HCPCS: 99281

== ENCOUNTER → 2018-06-07 | Outpatient (CLI) | payer MEDICARE, MEDICAID ==
--- NOTE | 2018-06-07 12:48 | Diagnostic Imaging Report ---
EXAMINATION: Right calcaneus radiographs, two views. COMPARISON: None. HISTORY: 48-year-old male, injury after stepping in hole. FINDINGS: There is prominent degenerative type enthesopathy at the insertion of the Achilles tendon. There is thickening and increased attenuation in the expected location of the distal Achilles tendon. There is a prominence of the posterior superior calcaneus. There is no definite radiographic loss of normal fat attenuation in the region of the retrocalcaneal bursa. There is no bone erosion. There are well-corticated areas of ossification adjacent to the dorsal aspect of the navicular which could relate to sequela of remote prior injury or accessory ossicles. There is a prominent posterior process of the talus. There is no identified ankle joint effusion. There is no identified acute fracture. IMPRESSION: 1. Prominent degenerative type enthesopathy at the Achilles tendon insertion with apparent thickening of the distal Achilles tendon which is not well directly evaluated radiographically. If there is concern for Achilles tendon tear, this would be more optimally evaluated with dedicated MRI. 2. 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 3. No bone erosion. 4. No acute fracture. 5. Well-corticated areas of ossification adjacent to the dorsal aspect of the navicular likely reflecting sequela of remote prior injury and/or accessory ossicles. Dictated by: Dictated on workstation # [id number]
== END ==
LOC: RAD 12:21
PROVIDERS: ATTEND Nurse Practitioner Family
DX: M76.61 Achilles tendinitis, right leg (principal); M89.8X7 Other specified disorders of bone, ankle and foot; M61.59 Other ossification of muscle, multiple sites
CPT/HCPCS: 73650

== ENCOUNTER → 2021-08-24 | Outpatient (CLI) | payer MEDICARE ==
[~2021-08-24] MED LIST changes: -BENZ-13 PO; +BENZ100C18 PO; -DIAZ5TAB3 PO; +DIAZ5TAB49 PO; -GABA600T2 PO; +GBPN600T PO; -LOSA100T28 PO; +LOSA100T57 PO; -OXYC-471 PO; +OXYC1TAB11 PO; -TRAM50TA2 PO; +TRM50T PO
--- NOTE | 2021-08-24 15:47 | Diagnostic Imaging Report ---
INDICATION: Cervical disc disorder, radiculopathy. TECHNIQUE: AP, lateral, bilateral oblique and odontoid views cervical spine. CORRELATION STUDY: 08/18/2017. FINDINGS: Straightening and reversal of the normal cervical lordosis. Slight loss of height and anterior wedging at the C5 and C6 levels. Prominent osteophytes, particularly C5, C6 and C7. C7-T1 levels not well visualized. The odontoid appears unremarkable. Lateral masses of C1-C2 aligned. Mild endplate osteophyte formation does result in likely some degree of osseous encroachment on the neural foramina and spinal canal. Prevertebral soft tissues are unremarkable. Visualized lung apices are unremarkable. IMPRESSION: 1. Negative for acute findings of the cervical spine. Advanced multilevel cervical spondylosis. 2. The most severe at the C5-C6 and to a lesser degree remaining cervical spine levels. Likely various degrees of osseous encroachment and narrowing of the canal and foramina. Dictated by: Dictated on workstation # [id number]
== END ==
LOC: RAD 11:27
PROVIDERS: ATTEND Internal Medicine
DX: M47.812 Spondylosis without myelopathy or radiculopathy, cervical region (principal); M50.122 Cervical disc disorder at C5-C6 level with radiculopathy; M77.12 Lateral epicondylitis, left elbow; G56.21 Lesion of ulnar nerve, right upper limb
CPT/HCPCS: 72050

== ENCOUNTER 2023-01-08 13:27 | Emergency (ER) | payer MEDICARE ==
[~2023-01-08] VITALS: Ht 195.5 cm; Wt 99.7 kg
[~2023-01-08 13:27] MED LIST changes: +ALBU8.5H6 IH; -RT-ALBUINH IH
--- NOTE | 2023-01-08 14:27 | ED Integumentary General ---
General Chief Complaint: Skin/Wound Problems Stated Complaint: ALLERGIC REACTION Nursing Triage Note: C/O SKIN RASH OFF AND ON FOR 2 MONTHS, VERBALIZES IT FEELS LIKE HE IS ON FIRE OR THERE ARE BUGS CRAWLING ON HIM. STATES HE WAS ON STEROIDS 2 WEEKS AGO AND THE RASH CONTINUES. STATES HE CANT TAKE IT ANYMORE AND NEEDS SOMETHING TO MAKE IT GO AWAY. Source: patient Exam Limitations: no limitations History of Present Illness Date Seen by Provider: Jan 08, 2023 Time Seen by Provider: 14:10 Initial Comments 52-year-old male presents to the ED with complaints of a rash to his entire body for the last month. Reports he was on a steroid for it before. States the rash itches, states he is okay at night, but the itching is worse during the day. States he took Benadryl this morning which did not help. Denies fevers, chest pain, shortness of air, abdominal pain, nausea, vomiting. Allergies and Home Medications Allergies Coded Allergies: NKANo Known Allergies (Unverified Allergy, Mild, 01/08/23) Patient Home Medication List Home Medication List Reviewed: Yes Albuterol Sulfate (Ventolin Hfa) 1 Puff Puff, 2 PUFF INH Q4H Prescribed by: Citlaly Latif on 01/08/23 1431 Aspirin (Aspirin) 81 Mg Tab.chew, 81 MG PO DAILY Prescribed by: BRADLY SÁNCHEZ on 02/01/18 1005 Azithromycin (Azithromycin) 250 Mg Tablet, 250 MG PO UD Prescribed by: BRADLY SÁNCHEZ on 02/01/18 1005 Cephalexin (Keflex) 500 Mg Capsule, 500 MG PO QID Prescribed by: BRADLY SÁNCHEZ on 02/01/18 1005 Diazepam (Diazepam) 5 Mg Tablet, 5 MG PO BID PRN for ANXIETY/LEG SPASMS, (Reported) Entered as Reported by: REESE ESCAMILLA on 01/31/18 0933 Fluticasone/Salmeterol (Advair Hfa 115-21 Mcg Inhaler) 12 Gm Hfa.aer.ad, 2 PUFF IH BID@ Prescribed by: BRADLY SÁNCHEZ on 02/01/18 1005 Gabapentin (Gabapentin) 600 Mg Tablet, 600 MG PO TID PRN for NERVE PAIN, (Reported) Entered as Reported by: CATIA GORDON on 05/22/16 0637 Losartan Potassium (Losartan Potassium) 100 Mg Tablet, 100 MG PO DAILY, (Reported) Entered as Reported by: REESE ESCAMILLA on 01/31/18 1002 Methylprednisolone (Methylprednisolone Dose Pack) 4 Mg Tablet, 4 MG PO UD Prescribed by: Citlaly Latif on 01/08/23 1431 Oxycodone HCl/Acetaminophen (Oxycodone-Acetaminophen 5-325) 1 Each Tablet, 1 TAB PO TID PRN for PAIN-MODERATE, (Reported) Entered as Reported by: REESE ESCAMILLA on 01/31/18 0933 Prednisone (Prednisone) 20 Mg Tab, 20 MG PO DAILY Prescribed by: BRADLY SÁNCHEZ on 02/01/18 1005 [Erin-Paris] , PO UD PRN for COLD, (Reported) Entered as Reported by: REEES ESCAMILLA on 01/31/18 0937 Review of Systems Review of Systems Constitutional: see HPI Past Bsgxgkw-Tysvav-Dbhite Hx Patient Social History Tobacco Use?: Yes Tobacco type used: Cigars Smoking Status: Current Everyday Smoker Use of E-Cig and/or Vaping dev: No Substance use?: No Alcohol Use?: Yes Alcohol Frequency: Once in a while Immunizations Up To Date Tetanus Booster (TDap): Unknown PED Vaccines UTD: No Influenza Vaccine Up-to-Date: No; Not Current First/Initial COVID19 Vaccinat: NOT VACC Seasonal Allergies Seasonal Allergies: No Past Medical History Surgery/Hospitalization HX: DENIES LEFT KNEE REPLACEMENT Surgeries: Yes (LEFT LOWER LEG SURGERY X 4) Orthopedic Respiratory: No Currently Using CPAP: No Currently Using BIPAP: No Cardiac: Yes (bigemeny, trigemeny) Hypertension, Irregular Heartbeat Neurological: No Reproductive Disorders: No Sexually Transmitted Disease: No HIV/AIDS: No Genitourinary: No Gastrointestinal: No Musculoskeletal: Yes (LEFT LOWER LEG INJURY) Chronic Back Pain, Fractures Endocrine: No HEENT: No Cancer: No Psychosocial: No Integumentary: No Blood Disorders: No Adverse Reaction/Blood Tranf: No Family Medical History Heart Disease, Cancer, Hypertension Physical Exam Vital Signs Vital Signs - First Documented 01/08/23 13:40 Temp 36.6 Pulse 86 Resp 16 B/P (MAP) 150/91 (110) Pulse Ox 100 O2 Delivery Room Air Capillary Refill : Less Than 3 Seconds General Appearance: WD/WN, no apparent distress Neck: supple, normal inspection Cardiovascular: regular rate, rhythm, no edema, no gallop, no JVD, no murmur Respiratory: no respiratory distress, no accessory muscle use, wheezing Extremities: normal range of motion, normal inspection Neurologic/Psychiatric: alert, normal mood/affect Skin: normal color, warm/dry, other (Eczema-like rash to abdomen, arms, legs.) Skin Problem Location: upper extremities, torso, lower extremities Skin Problem Character: rash Progress/Results/Core Measures Results/Orders My Orders Orders - CITLALY LATIF APRN Diphenhydramine Tablet (Benadryl Tablet) (01/08/23 14:30) Vital Signs/I&O 01/08/23 01/08/23 13:40 14:36 Temp 36.6 Pulse 86 86 Resp 16 16 B/P (MAP) 150/91 (110) 150/91 Pulse Ox 100 100 O2 Delivery Room Air Room Air Blood Pressure Mean: 110 Progress Progress Note : Time: 14:23 Progress Note Patient seen and evaluated, resting comfortably bed, no acute distress. Based on exam and symptoms, differentials includes contact dermatitis, atopic dermatitis. Will prescribe Medrol Dosepak and instruct patient to obtain E ucerin [id number] and use liberally. Slight expiratory wheeze noted to breath sounds. Patient reports he smokes cigars, states he has been diagnosed with COPD. Used to have an albuterol inhaler, but ran out. Denies any shortness of breath. Does not want a breathing treatment here. But would like a prescription for an albuterol inhaler. Departure Impression Primary Impression: Rash Disposition: 01 HOME, SELF-CARE Condition: Stable Departure-Patient Inst. Decision time for Depature: 14:25 Referrals: [facility] (PCP/Family) Primary Care Physician Patient Instructions: Eczema ED Add. Discharge Instructions: Take Medrol Dosepak as prescribed. Use albuterol inhaler as needed for shortness of breath or wheezing. Get Eucerin lotion, and apply liberally to skin. Use Cetaphil body wash. You may also do oatmeal baths. Follow-up with primary care provider. Return for any new, concerning, or worsening symptoms All discharge instructions reviewed with patient and/or family. Voiced understanding. Scripts Albuterol Sulfate (VENTOLIN HFA) 1 Puff Puff 2 PUFF INH Q4H, #1 EA 0 Refills 1 PUFF = 90 MCG Prov: CITLALY LATIF APRN 01/08/23 Methylprednisolone (Methylprednisolone Dose Pack) 4 Mg Tablet 4 MG PO UD for 6 Days, #21 TAB 0 Refills FOLLOW DOSE PACK INSTRUCTIONS Prov: CITLALY LATIF APRN 01/08/23 CITLALY LATIF APRN Jan 08, 2023 14:27
[2023-01-08] MEDS ORDERED: diphenhydrAMINE 25 MG TAB (BENADRYL) PO ONE (14:30)
[2023-01-08] MEDS ORDERED: RT-ALBUINH INH (14:31)
[2023-01-08] MEDS ORDERED: METH4TAB11 PO (14:31)
[2023-01-08 14:36] VITALS: BP 150/91
== END 2023-01-08 14:36 | disposition home or self-care (01) ==
LOC: EDUNIT# 13:27 → ER 13:29
DX: R21 Rash and other nonspecific skin eruption (principal); F17.290 Nicotine dependence, other tobacco product, uncomplicated; Z28.310 Unvaccinated for COVID-19
CPT/HCPCS: 99283